=== PATIENT | male | born 1950 | race Caucasian/White ===

== ENCOUNTER 2023-07-27 09:45 | Outpatient (OUT) | payer MEDICARE, SELFPAY ==
--- NOTE | 2023-07-27 09:51 | US_ITS ---
[address] [address] Patient Name: RADHA HOUSE MRN: [id number] date: 1950 Sex: M Assigned Patient Location: US Current Patient Location: Accession/Order Number: [id number] Exam Date: 07/27/2023 09:59 Report Date: 07/27/2023 12:44 At the request of: ANNIA BERRY Procedure: US extremity nonvascular RT EXAMINATION: US venous doppler LE RT, US extremity nonvascular RT HISTORY: CELLULITIS OF RIGHT LOWER EXTREMITY L03.115 ; palpable lump at right ankle COMPARISON: No relevant comparison available. FINDINGS: REGION: Right lower extremity THROMBI: None within deep system. COMPRESSIBILITY: Normal possibility of deep system. FLOW: Normal waveform and antegrade flow between 5 and 20 cm/s. OTHER: Thrombosed great saphenous vein (superficial vein) from mid calf to ankle. US/US extremity nonvascular RT IMPRESSION: 1. No deep vein thrombus within the right lower extremity. 2. Thrombosed distal great saphenous vein; chronic versus acute superficial thrombophlebitis. Findings correspond to patient's palpable lump. Electronically authenticated by: JAYLEN STARK Date: 07/27/2023 12:44
--- NOTE | 2023-07-27 10:24 | US_ITS ---
[address] [address] Patient Name: RADHA HOUSE MRN: [id number] date: 1950 Sex: M Assigned Patient Location: US Current Patient Location: US Accession/Order Number: [id number] Exam Date: 07/27/2023 10:24 Report Date: 07/27/2023 12:44 At the request of: ANNIA BERRY Procedure: US venous doppler LE RT EXAMINATION: US venous doppler LE RT, US extremity nonvascular RT HISTORY: CELLULITIS OF RIGHT LOWER EXTREMITY L03.115 ; palpable lump at right ankle COMPARISON: No relevant comparison available. FINDINGS: REGION: Right lower extremity THROMBI: None within deep system. COMPRESSIBILITY: Normal possibility of deep system. FLOW: Normal waveform and antegrade flow between 5 and 20 cm/s. OTHER: Thrombosed great saphenous vein (superficial vein) from mid calf to ankle. US/US venous doppler LE RT IMPRESSION: 1. No deep vein thrombus within the right lower extremity. 2. Thrombosed distal great saphenous vein; chronic versus acute superficial thrombophlebitis. Findings correspond to patient's palpable lump. Electronically authenticated by: JAYLEN STARK Date: 07/27/2023 12:44
== END 2023-07-27 09:46 | disposition home or self-care (01) ==
LOC: US 09:45
PROVIDERS: PCP Internal Medicine; Visit Provider Internal Medicine
DX: R22.41 Localized swelling, mass and lump, right lower limb (principal)
CPT/HCPCS: 76882; 93971

== ENCOUNTER 2023-08-16 10:43 | Outpatient (OUT) | payer MEDICARE, SELFPAY ==
--- OUTSIDE RECORDS SUMMARY | 2023-08-16 10:51 | XMS_ITS | CCD ---
Author Name Unknown Address [address] [place] [address] Organization [facility] Care Team Providers Care Assembler Motor Vehicle Name Role Phone DR JULIAN HIGGINS Admitting Unavailable RONALDO, DR VIVAS Attending Unavailable STONE, DR MILNER Primary Care Unavailable RONALDO, DR VIVAS Consulting Unavailable ADONIS BERRY Primary Care Physician MD Julian Higgins Attending Provider [phone] DO Adonis Berry Primary Care Provider Adonis Berry Primary Care Unavailable Julian Higgins Attending Unavailable Julian Higgins Admitting Unavailable Adonis Berry Unavailable Julian HIGGINS Attending Unavailable Julian HIGGINS Attending Unavailable Allergies Allergy Classification Reported Allergen(s) Allergy Type Date of Onset Reaction(s) Facility (1 source) Unable to Assess Drug allergy (disorder) [facility] Repository (1 source) No Known Medication Allergies; Translations: [No Known Medication Allergies] Propensity to adverse reactions (disorder) [facility] Repository Medications Current Medications Medication Drug Class(es) Dates Sig (Normalized) Sig (Original) doxycycline hyclate 100 mg oral capsule (6 sources) Tetracycline-clas s Drug Start: 07-11-2023 take 1 capsule by mouth every twelve hours Doxycycline Hyclate 100 MG 1 capsule Orally Twice a day for 7 days Jun, Active Completed/Discontinued Medications Medication Drug Class(es) Dates Sig (Normalized) Sig (Original) azithromycin 250 mg oral tablet (6 sources) Macrolide Antimicrobial Start: 07-06-2022 take 1 tablet by mouth once daily Azithromycin 250 MG azithromycin 250mg, 2 (two) tablet today followed by 1 daily # 6, 07/06/2022, No Refill. Active Oral today followed by 1 daily for 5 Jun, Not-Taking/PRN paxlovid (300/100) 20 x 150 mg & 10 x 100mg tablet therapy pack (4 sources) Start: 07-18-2023 Paxlovid (300/100) 20 x 150 MG & 10 x 100MG as directed Orally bid for 5 days Jun, Not-Taking/PRN Start: 07-18-2023 Paxlovid (300/ 100) 20 x 150 MG & 10 x 100MG as directed Orally bid for 5 days Jun, Active Suprep Bowel Prep Kit 17.5-3.13-1.6 GM/180ML (6 sources) Start: 05-20-2018 Suprep Bowel P rep Kit 17.5-3.13-1.6 GM/180ML 1 bottle AT 4 PM AND ONE BOTTLE AT 11 PM DAY PRIOR TO COLONSOCOPY Orally Once a day for 1 days Apr, Not-Taking/PRN Problems Active Problems Problem Classification Problem Date Documented Da te Episodic/Chronic Diabetes mellitus without complication (6 sources) Impaired fasting glycemia; Translations: [Impaired fasting glucose] Episodic Disorders of lipid metabolism (7 sources) Hyperlipidemia; Translations: [Mixed hyperlipidemia] 06-11-2019 Chronic Essential hypertension (7 sources) Hypertensive disorder; Translations: [Essential hypertension] 06-11-2019 Chronic Hyperplasia of prostate (8 sources) Benign prostatic hypertrophy with outflow obstruction; Translations: [Benign prostatic hyperplasia with lower urinary tract symptoms] Onset: 3 Chronic Other screening for suspected conditions (not mental disorders or infectious disease) (9 sources) Raised prostate specific antigen; Translations: [Elevated prostate specific antigen [PSA]] Onset: 3 Episodic Other skin disorders (1 source) Localized swelling, mass and lump, unspecified Episodic Phlebitis; thrombophlebitis and thromboembolism (1 source) Phlebitis and thrombophlebitis of superficial vessels of right lower extremity Episodic Skin and subcutaneous tissue infections (3 sources) Cellulitis of right lower limb Episodic Past or Other Problems Problem Classification Problem Date Documented Da te Episodic/Chronic Viral infection (3 sources) COVID-19 Results Test Name Value Interpretation Reference Range Facility RAD - MRI Reporton 3 RAD - MRI Report [id number] #1.00CD:127 Normal [facility] Creatinine (Bld) [Mass/Vol]O rdered By: Julian Higgins on 09-11-2022 Creatinine [Mass/Vol] 0.9 mg/dL 0.6-1.3 [facility] Comment on above: ER/ESD physician is notified/shown all ISTAT results.Critical values may be confirmed by laboratory testing ifdeemed necessary by ER attending doctor. ISTAT XRay CREon 09-11-2022 Creatinine [Mass/Vol] 0.9 mg/dL Normal 0.6-1.3 [facility] Comment on above: Result Comment: ER/E SD physician is notified/shown all ISTAT results. Critical values may be confirmed by laboratory testing if deemed necessary by ER attending doctor. Performed By: #### I SCRE #### [address] Point of Care testing , ISTAT GFR ( > 60 Normal [facility] Comment on above: Result Comment: GFR estimated reference range: According to KDOQI guidelines, <60 ml/min/1.73m2 is sufficient to diagnose a patient with chronic kidney disease. PERFORMED BY: [place] [address] PATHOLOGIST [employer] FRANK ELLIS M.D. Performed By: #### I SCRE #### [address] Point of Care testing , ISTAT GFR (Non- Am > 60 Normal [facility] Comment on above: Performed By: #### I SCRE #### [address] Point of Care testing , MR prostate wo/w conon 09-11 MR prostate wo/w con [facility] Main [place] [address] [place] [address] MRI Report Signed Patient: Radha House MR#: [id number] : 1950 Acct:[id number] Age/Sex: 72 / M ADM Date: 09/11/22 Loc: MR Room: Type: [facility] Attending Dr: Julian Higgins MD Copies to: Julian Higgins MD Ordering Provider: Julian Higgins MD Date of Service: 09/11/22 MR/MR prostate wo/w con: R97.20 EXAMINATION: MR prostate wo/w con HISTORY: Elevated PSA. Dysuria for 6 years. COMPARISON: NONE TECHNIQUE: Multiparametric imaging of the prostate gland was performed with IV contrast. FINDINGS: Prostate Dimensions: 7.3 x 6.1 x 6.3 cm Prostate Volume: 146 mL Peripheral Zone: Heterogenous inT2 signal suggestive of prior prostatitis. No suspicious T2 or ADC map abnormality is identified to suggest prostate malignancy. Central/Transitional Zone: BPH changes. Seminal Vesicles: Unremarkable Neurovascular bundles: Unremarkable. Lymphadenopathy: No evidence of lymphadenopathy. Bladder: No focal lesion. Bowel: Diverticulosis Peritoneal Cavity: No free fluid. Bones: No suspicious bony lesion. MR/MR prostate wo/w con IMPRESSION: No MRI evidence of prostate malignancy. BPH. Impression dictated by: Christopher Lucas Jr., D.O.09/11/2022 6:29 PM Dictation Location: [place] [address] Transcribed By: [facility] 09/11/221828 Dictated By: Christopher Lucas Jr, DO 09/11/221823 Signed By: 09/11/221828 [facility] No Panel InformationOrdered By: Julian Higgins on 09-11-2022 POC Estimated GFR > 60 [facility] Comment on above: GFR estimated refere nce range: According to KDOQI guidelines, <60 ml/min/1.73m2 is sufficient to diagnose a patient with chronic kidney disease. POC Estimated GFR Non- Amer > 60 [facility] Ambulatory Visit Summaryon 0 08-18-2022 Ambulatory Visit Summary RADHA HOUSE :1950 Visit Date:08/18/2022 Ambulatory Visit Instructions Your Diagnosis BPH with urinary obstruction Elevated PSA Tests Performed Urnls Dip Stick Auto w/o Microscopy POC 52303 MRI Pelvis (Soft Tissue) w/ + w/o contrast -- Results Pending -- Please visit your patient portal for your results or contact your primary care physician. Your Care Team Attending Physician - RONALDO THRASHER, Julian Hayden Primary Care Physician - ADONIS BERRY DO Procedures Performed Transrectal biopsy of prostate using ultrasound (US) guidance (07/16/2018), Transrectal biopsy of prostate using ultrasound guidance (08/14/2017), Colonoscopy, Tonsillectomy. Discharge Vitals Heart Rate (Peripheral) 75 Respiratory Rate 16 Blood Pressure 135/83 Height 182.8 cm Height 72 in Weight 128.2 kg Weight 282.04 lb BMI 38.37 What to do next You Need to Schedule the Following Appointments Follow Up with RONALDO THRASHER, PATRICIA Greenberg When: Where: [address] [place] [address]- Test Results Urnls Dip Stick Auto w/o Microscopy POC 36563 (08/18/2022) Bilirubin Urine Dipstick - Negative Blood Urine Dipstick - Trace-intact Glucose Urine Dipstick - Negative Ketones Urine Dipstick - Negative Leukocytes Urine Dipstick - Negative Nitrite Urine Dipstick - Negative Protein Urine Dipstick - Negative Specific [place] Urine Dipstick - 1.025 Urine Appearance Urine Dipstick - Clear Urine Color Urine Dipstick - Yellow Urobilinogen Urine Dipstick - Normal 0.2-1 EU/dl pH Urine Dipstick - 6 Allergies No Known Medication Allergies Problems Ongoing - Any problem that you are currently receiving treatment for. BPH with urinary obstruction Elevated PSA Hyperlipidemia Hypertension Education Materials Prostate Cancer Screening The prostate is a walnut-sized gland that is located below the bladder and in front of the rectum in males. The function of the prostate (prostate gland) is to add fluid to semen during ejaculation. Prostate cancer is the second most common type of cancer in men. A screening test for cancer is a test that is done before cancer symptoms start. Screening can help to identify cancer at an early stage, when the cancer can be treated more easily. The recommended prostate cancer screening test is a blood test called the prostate-specific antigen (PSA) test. PSA is a protein that is made in the prostate. As you age, your prostate naturally produces more PSA. Abnormally high PSA levels may be caused by: ? Prostate cancer. ? An enlarged prostate that is not caused by cancer (benign prostatic hyperplasia, BPH). This condition is very common in older men. ? A prostate gland infection (prostatitis). ? Medicines to assist with hair growth, such as finasteride. Depending on the PSA results, you may need more tests, such as: ? A physical exam to check the size of your prostate gland. ? Blood and imaging tests. ? A procedure to remove tissue samples from your prostate gland for testing (biopsy). Who should have screening? Screening recommendations vary based on age. ? If you are younger than age 40, screening is not recommended. ? If you are age 40?54 and you have no risk factors, screening is not recommended. ? If you are younger than age 55, ask your health care provider if you need screening if you have one of these risk factors: ? Being of -Citizen Of [place] descent. ? Having a family history of prostate cancer. ? If you are age 55?69, talk with your health care provider about your need for screening and how often screening should be done. ? If you are older than age 70, screening is not recommended. This is because the risks that screening can cause are greater than the benefits that it may provide (risks outweigh the benefits). If you are at high risk for prostate cancer, your health care provider may recommend that you have screenings more often or start screening at a younger age. You may be at high risk if you: ? Are older than age 55. ? Are -Citizen Of [place]. ? Have a father, brother, or uncle who has been diagnosed with prostate cancer. The risk may be higher if your family member's cancer occurred at an early age. What are the benefits of screening? There is a small chance that screening may lower your risk of dying from prostate cancer. The chance is small because prostate cancer is typically a slow-growing cancer, and most men with prostate cancer from a different cause. What are the risks of screening? The main risk of prostate cancer screening is diagnosing and treating prostate cancer that would never have caused any symptoms or problems (overdiagnosis and overtreatment). PSA screening cannot tell you if your PSA is high due to cancer or a different cause. A prostate biopsy is the only procedure to diagnose prostate cancer. Even the results of a biopsy may not (more content not included)... Normal [facility] Patient Educationon 08-18-19 Patient Education Oncology Prostate Cancer Screening The prostate is a walnut-sized gland that is located below the bladder and in front of the rectum in males. The function of the prostate (prostate gland) is to add fluid to semen during ejaculation. Prostate cancer is the second most common type of cancer in men. A screening test for cancer is a test that is done before cancer symptoms start. Screening can help to identify cancer at an early stage, when the cancer can be treated more easily. The recommended prostate cancer screening test is a blood test called the prostate-specific antigen (PSA) test. PSA is a protein that is made in the prostate. As you age, your prostate naturally produces more PSA. Abnormally high PSA levels may be caused by: ? Prostate cancer. ? An enlarged prostate that is not caused by cancer (benign prostatic hyperplasia, BPH). This condition is very common in older men. ? A prostate gland infection (prostatitis). ? Medicines to assist with hair growth, such as finasteride. Depending on the PSA results, you may need more tests, such as: ? A physical exam to check the size of your prostate gland. ? Blood and imaging tests. ? A procedure to remove tissue samples from your prostate gland for testing (biopsy). Who should have screening? Screening recommendations vary based on age. ? If you are younger than age 40, screening is not recommended. ? If you are age 40?54 and you have no risk factors, screening is not recommended. ? If you are younger than age 55, ask your health care provider if you need screening if you have one of these risk factors: ? Being of -Citizen Of [place] descent. ? Having a family history of prostate cancer. ? If you are age 55?69, talk with your health care provider about your need for screening and how often screening should be done. ? If you are older than age 70, screening is not recommended. This is because the risks that screening can cause are greater than the benefits that it may provide (risks outweigh the benefits). If you are at high risk for prostate cancer, your health care provider may recommend that you have screenings more often or start screening at a younger age. You may be at high risk if you: ? Are older than age 55. ? Are -Citizen Of [place]. ? Have a father, brother, or uncle who has been diagnosed with prostate cancer. The risk may be higher if your family member's cancer occurred at an early age. What are the benefits of screening? There is a small chance that screening may lower your risk of dying from prostate cancer. The chance is small because prostate cancer is typically a slow-growing cancer, and most men with prostate cancer from a different cause. What are the risks of screening? The main risk of prostate cancer screening is diagnosing and treating prostate cancer that would never have caused any symptoms or problems (overdiagnosis and overtreatment). PSA screening cannot tell you if your PSA is high due to cancer or a different cause. A prostate biopsy is the only procedure to diagnose prostate cancer. Even the results of a biopsy may not tell you if your cancer needs to be treated. Slow-growing prostate cancer may not need any treatment other than monitoring, so diagnosing and treating it may cause unnecessary stress or other side effects. A prostate biopsy may also cause: ? Infection or fever. ? A false negative. This is a result that shows that you do not have prostate cancer when you actually do have prostate cancer. Questions to ask your health care provider ? When should I start prostate cancer screening? ? What is my risk for prostate cancer? ? How often do I need screening? ? What type of screening tests do I need? ? How do I get my test results? ? What do my results mean? ? Do I need treatment? Contact a health care provider if: ? You have difficulty urinating. ? You have pain when you urinate or ejaculate. ? You have blood in your urine or semen. ? You have pain in your back or in the area of your prostate. ? You have trouble getting or maintaining an erection (erectile dysfunction, ED). Summary ? Prostate cancer is a common type of cancer in men. The prostate (prostate gland) is located below the bladder and in front of the rectum. This gland adds fluid to semen during ejaculation. ? Prostate cancer screening may identify cancer at an early stage, when the cancer can be treated more easily. ? The prostate-specific antigen (PSA) test is the recommended screening test for prostate cancer. ? Discuss the risks and benefits of prostate cancer screening with your health care provider. If you are age 70 or older, screening is likely to lead to more risks than benefits (risks outweigh the benefits). This information is not intended to replace advice given to you by your health care provider. Make sure you discuss any questions you have with your health care provider. Document Released: 04/26/2018 Document R (more content not included)... [facility] Pre-Certification Formon Pre-Certification Form [id number] #1.00CD:127 [facility] Urology Office/Clinic Noteon 08-18-2022 Urology Office/Clinic Note Chief Complaint elevated PSA HPI Staff Pt is here for 1 year f/u with PSA. Previous dx of elevated PSA and BPH with urinary obstruction. Current PSA done 08/16/22 is 12.58 and previous done 08/10/21 was 7.8. Dysuria: pt states he has some burning off and on but it has been ongoing for about 6 years Incomplete bladder emptying: no Hematuria: no Frequency: every 3-4 hours Urgency: no Nocturia: 1-2x Stream: good stream no straining Leaking: only if he waits too long Post void dripping: no Wearing pads/ Depends: no Urge incontinence: no Stress incontinence: pt states not normally but if he waits too long and his bladder is full it may happen Incontinence without Sensory Awareness: no Abdominal pain: pt has an umbilical hernia so he has some discomfort Flank pain: a little on the left off and on for a long time Sexual complaints: no History of Present Illness Tests reviewed: reviewed UA and PSA. I have reviewed the previous health record information and history for this patient from Dr. Higgins. I have reviewed and verified the staff HPI to be accurate for this encounter. There have been no associated fever, chills, flank pain, or blood in the urine. Denies any urinary infections since last encounter. Review of Systems PHQ Score Initial Depression Screen Score: 0 ROS - Provider Constitutional: denies weight loss, denies hot flashes. Eyes: denies eye problems. Gastrointestinal: denies nausea, denies vomiting. Cardiovascular: denies chest pain or angina. Integumentary: no dryness Musculoskeletal: denies musculoskeletal symptoms. ENMT: denies otolaryngeal symptoms. Respiratory: no shortness of breath. Heme/Lymph: denies easy bleeding tendency, denies easy bruising tendency. Psychiatric: no confusion, no anxiety. Genitourinary: denies dysuria, denies hematuria, denies discharge, denies urinary frequency, denies urinary hesitancy, denies nocturia, denies incontinence, denies genital sores, denies decreased libido, and denies erectile dysfunction. Physical Exam Vitals & Measurements HR: 75(Peripheral) RR: 16 BP: 135/83 HT: 72 in HT: 182.8 cm WT: 128.2 kg WT: 282.04 lb BMI: 38.37 General Appearance: alert, no distress, well nourished, well developed male. Genitourinary: normal scrotum, normal testes, normal urethra, normal epididymis, normal vas deferens/spermatic cord. Flank Pain: none. Bladder: nonpalpable. Prostate: normal prostate, estimated weight 35 gms, no hard nodule observed. Assessment/Plan 1. BPH with urinary obstruction (N40.1: Benign prostatic hyperplasia with lower urinary tract symptoms) Patient is not on any prostate medications at this time. UA today neg for infection. Leakage with urge and some burning if he holds his urine too long. Reports burning has been happening for 6 years. Voiding every 3-4 hours. Denies any trouble with urination or hematuria. Strong stream and he feels empty when he is done. 2. Elevated PSA (R97.20: Elevated prostate specific antigen [PSA]) Two neg. bx in 07/2017 & 06/2018. Negative prostate MRI in 06/2019. Pt. has been as high as 15 in the past. I presume that pt. has low grade chronic prostatitis that is affecting PSA. We will order MRI of prostate to be done at [facility]. If neg for abnormalities, no biopsy will be indicated and will continue to follow PSA closely. Follow up in 1 year with PSA pending MRI. All questions/concerns were discussed. Pt. to call the office if heencounters any issues prior. Pt. acknowledges understanding. PSA: 04/2020 - 7 08/10/21 - 7.8 08/16/22 - 12.58 LOUIS today - 35gms, nontender, no hard nodules. Follow-up With When Contact Information RONALDO THRASHER, Julian Hayden, [address] [place] [address]- Additional Instructions: Schedule MRI; 1 year w/ PSA Patient Education Prostate Cancer Screening INicole, personally scribed for Dr. Higgins on 08/18/2022 10:47:05. . Documentation recorded by the scribe, Nicole Santiago, accurately reflects the services(s) I performed and decisions made by me. Authenticated by Dr. Higgins on 08/18/2022 10:48:32. Problem List/Past Medical History Ongoing BPH with urinary obstruction Elevated PSA Hyperlipidemia Hypertension Historical No qualifying data Procedure/Surgical History Transrectal biopsy of prostate using ultrasound (US) guidance (07/16/2018), Transrectal biopsy of prostate using ultrasound guidance (08/14/2017), Colonoscopy, Tonsillectomy. Medications No active medications Allergies No Known Medication Allergies Social History Tobacco - Denies Tobacco Use, 08/04/2019 Never (less than 100 in lifetime) Tobacco Use:., 06/13/2019 Family History Cancer of liver: Mother. Diabetes mellitus type 2: Mother. Hypertension: Mother. Immunizations Vaccine Date Status Comments SARS-CoV-2 (COVID-19) mRNA BNT-162b2 vax 2020 Recorded Pt has had 3 shots to date b (more content not included)... Normal [facility] Comment on above: Result Comment: Elec tronically Signed By: Julian HIGGINS MD\.br\Date and Time Signed: 08/18/22 10:48 EST\.br\Electronically Co-Signed By: Nicole Santiago\.br\Date and Time Co-Signed: 08/18/22 10:47 EST [facility] 08-17-2022 Lab Reports [id number] #1.00CD:127 Normal [facility] Vital Signs Date Time Vital Sign Value Performing Clinician Facility 07-27-2023 10:45-0500 Body height 177.8 cm [employer] Other [facility] Other 07-27-2023 10:45-0500 Body mass index (BMI) [Ratio] 36.33 kg/m2 [employer] Other [facility] Other 07-27-2023 10:45-0500 Body weight 114.85 kg [employer] Other [facility] Other 07-27-2023 10:45-0500 Diastolic blood pressure 95 mm[Hg] [employer] Other [facility] Other 07-27-2023 10:45-0500 Respiratory rate 16 /min Adonis Ball Other [facility] Other 07-27-2023 10:45-0500 Systolic blood pressure 153 mm[Hg] Adonis Ball Other [facility] Other 07-18-2023 10:15-0500 Body height 177.8 cm Adonis Ball Other [facility] Other 07-18-2023 10:15-0500 Body mass index (BMI) [Ratio] 36.3 kg/m2 Adonis Ball Other [facility] Other 07-18-2023 10:15-0500 Body weight 114.76 kg Adonis Ball Other [facility] Other 07-18-2023 10:15-0500 Diastolic blood pressure 99 mm[Hg] Adonis Ball Other [facility] Other 07-18-2023 10:15-0500 Respiratory rate 12 /min Adonis Ball Other [facility] Other 07-18-2023 10:15-0500 Systolic blood pressure 157 mm[Hg] Adonis Ball Other [facility] Other 07-11-2023 13:45-0500 Body height 177.8 cm Adonis Ball Other [facility] Other 07-11-2023 13:45-0500 Body mass index (BMI) [Ratio] 36.1 kg/m2 Adonis Ball Other [facility] Other 07-11-2023 13:45-0500 Body weight 114.13 kg Adonis Ball Other [facility] Other 07-11-2023 13:45-0500 Diastolic blood pressure 94 mm[Hg] Adonis Berry Other [facility] Other 07-11-2023 13:45-0500 Respiratory rate 12 /min Adonis Berry Other [facility] Other 07-11-2023 13:45-0500 Systolic blood pressure 142 mm[Hg] Adonis Berry Other [facility] Other 08-18-2022 09:43-0500 Blood Pressure Location Julian HIGGINS [facility] 08-18-2022 09:43-0500 Diastolic blood pressure 83 mm[Hg] Julian HIGGINS [facility] 08-18-2022 09:43-0500 Heart rate 75 /min Julian HIGGINS [facility] 08-18-2022 09:43-0500 Respiratory rate 16 /min Julian HIGGINS [facility] 08-18-2022 09:43-0500 Systolic blood pressure 135 mm[Hg] Julianvignesh HIGGINS [facility] Encounters Encounter Date Encounter Type Care Provider Facility Start: 11-12-2023 ambulatory Julian HIGGINS Facili ty:[facility] Start: 07-31-2023 End: 07-31-2023 ambulatory Adonis Berry Other [facility] Other Start: 07-31-2023 Telephone encounter [facility] Start: 07-27-2023 End: 07-27-2023 ambulatory Adonis Berry Other [facility] Other Start: 07-27-2023 Office outpatient vi sit 15 minutes Adonis Ball [facility] Start: 07-18-2023 End: 07-18-2023 ambulatory Adonis Ball Other [facility] Other Start: 07-18-2023 Office outpatient vi sit 15 minutes Adonis Ball [facility] Start: 07-18-2023 Telephone encounter Adonis Brery [facility] Start: 07-13-2023 End: 07-13-2023 ambulatory Adonis Ball Other [facility] Other Start: 07-13-2023 Telephone encounter Adonis Berry [facility] Start: 07-11-2023 End: 07-11-2023 ambulatory Adonis Stone Other [facility] Other Start: 07-11-2023 Office outpatient vi sit [address] [facility] Start: 09-11-2022 End: 09-11-2022 ambulatory Adonis Berry Facility:[facility] Start: 09-11-2022 End: 09-11-2022 ambulatory DO Adonis Ball Work Phone: [facility] Work Phone: Start: 09-11-2022 End: 09-11-2022 Patient encounter procedure DO Adonis Ball Work Phone: [facility] [place] Work Phone: Start: 08-18-2022 End: 08-19-2022 ambulatory Julian HIGGINS Facility:[facility] Start: 08-18-2022 End: 08-18-2022 Patient encounter procedure Julian HIGGINS [facility] Start: 08-16-2022 End: 08-17-[address] JULIAN HIGGINS Facility:[facility] Procedures Date Procedure Procedure Detail Performing Clinician Start: 09-11-2022 MR prostate wo/w con DO Adonis Ball Work Phone: Start: 08-16-[address] ANTONIETA HIGGINS Comment on above: Performed By: #### P SAD #### [facility] [address] [place] [address] Dr. Antione Alves Start: 07-16-2018 Transrectal biopsy o f prostate using ultrasound guidance Julian HIGGINS Start: 08-14-2017 Transrectal biopsy o f prostate using ultrasound guidance Julian HIGGINS Colonoscopy Julian HIGGINS Tonsillectomy Julian HIGGINS Immunizations Immunization Date Immunization Notes Care Provider Fa cility 07-30-2020 SARS-CoV-2 (COVID-19 ) mRNA BNT-162b2 vax Julian HIGGINS [facility] Comment on above: Result Comment: Pt h as had 3 shots to date but does not know the dates 04-04-2017 diphtheria, tetanus toxoids and acellular pertussis vaccine, unspecified formulation Adonis Berry Other [employer] Other Payers Date Payer Category Payer Self-pay 1958 Medicare [id number] 1950 Unknown [id number] 1950 Unknown [id number] 1950 Unknown [id number] Unknown [id number] Social History Date Type Detail Facility Start: 06-13-2019 Tobacco smoking status Never s moked tobacco (finding) [facility] Sex Assigned At Male [facility] Start: 1950 Sex Assigned At Male [facility] Functional Status Date Assessment Result Facility 08-18-2022 Functional Status N/A [facility] Clinical Notes 08-18-2022 to 07-27-2023 Note Date & Type Note Facility 07-27-2023 Evaluation note Encounter Date Diagnosis Assessment Notes Jun, Cellulitis of right lower extremity (ICD-10 - L03.115) Resolved w/ antibiotics. No further antibiotics needed. Elevate and warm compresses Jun, Thrombophlebitis of superficial veins of right lower extremity (ICD-10 - I80.01) Elevate, warm compresses, ASA and Voltaren Gel. Will update next week. No risk for DVT or PE Jun, COVID-19 (ICD-10 - U07.1) Completed Paxlovid. Symptoms lingering but improved. Complete 10 day isolation [facility] Other 12-20-2023 Evaluation note* Encounter Date Diagnosis Assessment Notes Treatment Notes Treatment Clinical Notes Jun, Cellulitis of right lower extremity (ICD-10 - L03.115) Elevate and warm compresses. There is now bruising distal to his tibia that correlates w/ some previous trauma Likely acute injury w/ superimposed cellulitis Jun, Subcutaneous mass (ICD-10 - R22.9) Monitor for now. US to determine if vascular or tendon in etiology. Jun, COVID-19 (ICD-10 - U07.1) Self isolate at home. - Cannot work - avoid contact with others - avoid pets - wipe counters, door knobs if touched - if can't avoid leaving home, must wear mask to protect others - need to stay isolated for 10 days from onset of symptoms - to discontinue isolation must be 5 days AND must be without fever for 24 hours AND symptoms must be improving. Always wear a mask in public places for complete 10 days Initiate Paxlovid [facility] Other 12-20-2023 Evaluation note* Encounter Date Diagnosis Assessment Notes Treatment Notes Treatment Clinical Notes Jun, COVID-19 (ICD-10 - U07.1) [facility] Other 12-13-2023 Evaluation note* Encounter Date Diagnosis Assessment Notes Treatment Notes Treatment Clinical Notes Jun, Cellulitis of right lower extremity (ICD-10 - L03.115) Elevate and warm compresses. Begin antibiotics. _update in 2 days and recheck in week. [facility] Other 01-20-2023 Hospital Discharge instructions Patient Education 08/18/2022 10:27:46 Prostate Cancer Screening Prostate Cancer Screening The prostate is a walnut-sized gland that is located below the bladder and in front of the rectum in males. The function of the prostate (prostate gland) is to add fluid to semen during ejaculation. Prostate cancer is the second most common type of cancer in men. A screening test for cancer is a test that is done before cancer symptoms start. Screening can helpto identify cancer at an early stage, when the cancer can be treated more easily. The recommended prostate cancer screening test is a blood test called the prostate-specific antigen (PSA) test. PSA is a protein that is made in the prostate. As you age, your prostate naturally produces more PSA. Abnormally high PSA levels may be caused by: Prostate cancer. An enlarged prostate that is not caused by cancer (benign prostatic hyperplasia, BPH). This condition is very common in older men. A prostate gland infection (prostatitis). Medicines to assist with hair growth, such as finasteride. Depending on the PSA results, you may need more tests, such as: A physical exam to check the size of your prostate gland. Blood and imaging tests. A procedure to remove tissue samples from your prostate gland for testing (biopsy). Who should have screening? Screening recommendations vary based on age. If you are younger than age 40, screening is not recommended. If you are age 40 54 and you have no risk factors, screening is not recommended. If you are younger than age 55, ask your health care provider if you need screening if you have oneof these risk factors: ?Being of -Citizen Of [place] descent. ?Having a family history of prostate cancer. If you are age 55 69, talk with your health care provider about your need for screening and how often screening should be done. If you are older than age 70, screening is not recommended. This is because the risks that screening can cause are greater than the benefits that it may provide (risks outweigh the benefits). If you are at high risk for prostate cancer, your health care provider may recommend that you have screenings more often or start screening at a younger age. You may be at high risk if you: Are older than age 55. Are -Citizen Of [place]. Have a father, brother, or uncle who has been diagnosed with prostate cancer. The risk may be higher if your family member's cancer occurred at an early age. What are the benefits of screening? There is a small chance that screening may lower your risk of dying from prostate cancer. The chance is small because prostate cancer is typically a slow-growing cancer, and most men with prostate cancer from a different cause. What are the risks of screening? The main risk of prostate cancer screening is diagnosing and treating prostate cancer that would never have caused any symptoms or problems (overdiagnosis and overtreatment). PSA screening cannot tell you if your PSA is high due to cancer or a different cause. A prostate biopsy is the only procedure to diagnose prostate cancer. Even the results of a biopsy may not tell you if your cancer needs megan treated. Slow-growing prostate cancer may not need any treatment other than monitoring, so diagnosing and treating it may cause unnecessary stress or other side effects. A prostate biopsy may also cause: Infection or fever. A false negative. This is a result that shows that you do not have prostate cancer when you actually do have prostate cancer. Questions to ask your health care provider When should I start prostate cancer screening? What is my risk for prostate cancer? How often do I need screening? What type of screening tests do I need? How do I get my test results? What do my results mean? Do I need treatment? Contact a health care provider if: You have difficulty urinating. You have pain when you urinate or ejaculate. You have blood in your urine or semen. You have pain in your back or in the area of your prostate. You have trouble getting or maintaining an erection (erectile dysfunction, ED). Summary Prostate cancer is a common type of cancer in men. The prostate (prostate gland) is located below the bladder and in front of the rectum. This gland adds fluid to semen during ejaculation. Prostate cancer screening may identify cancer at an early stage, when the cancer can be treated more easily. The prostate-specific antigen (PSA) test is the recommended screening test for prostate cancer. Discuss the risks and benefits of prostate cancer screening with your health care provider. If you are age 70 or older, screening is likely to lead to more risks than benefits (risks outweigh the benefits). This information is not intended to replace advice given to you by your health care provider. Make sure you discuss any questions you have with your health care provider. Document Released: 04/26/2018 Document Revised: 06/28/2018 Document Reviewed: 04/26/2018 [employer] Patient Education 2020 Private Outlet. Follow Up Care 08/15/2021 12:39:57 With:RONALDO THRASHER, Julian Hayden, URL Address: [address] [place] [address] [place] [address]- When: Unknown [facility] evaluation + Plan note Future Appointments Appointment Date:08/17/2023 09:30:00 AM Scheduled Provider:Julian HIGGINS MD Location:[facility] Appointment Type:URO Office Visit Diagnostic Tests Pending * PSA Total 06/29/23 [facility] evaldynypl noteNo assessment information available [facility] Work Phone: [facility]No [facility] [employer] Other History general Narrative - Reported* Type Description Date Medical History Hyperlipidemia, mixed Medical History Benign localized pro static hyperplasia without lower urinary tract symptoms (LUTS) Medical History Elevated PSA Medical History IFG (impaired fasting glucose) Medical History Essential hypertension Surgical History COLONOSCOPY 05/2018 Hospitalization History see surgical history [facility] [employer] Other Hospital course Narrative No data available for this section [facility] Sidestage progress note No data available for this section [facility] Summary Purpose Family History No Family History Records FoundNo Family History Records FoundNo Family History Records Found Advance Directives No Advanced Directives Records Found Advance Directive Response Recorded Date/ Time Advance Directives No August 30, 2022 1:25pm Chief Complaint and Reason for Visit Chief Complaint r97.20 Additional Source Comments (unrecognized sect ion and content) No Status Records FoundNo Status Records FoundNo Status Records Found INFORMATION SOURCE (unrecogn ized section and content) DATE CREATED AUTHOR 08/17/2022 [facility] DATE CREATED AUTHOR AUTHOR'S ORGANIZ ATION 09/20/2022 [facility] DATE CREATED AUTHOR AUTHOR'S ORGANIZ ATION 08/03/2023 Clarence Villegas [facility] Patient Care team informatio n (unrecognized section and content) Team Status: Inactive Member Role Status Dates Julian Higgins MD Attending Provider Active Adonis Berry DO Primary Care Provider Active Team Status: Active Member Role Status Dates Adonis Berry , Primary Care Provider Active Goals (unrecognized section and content) Goals may be documented in a n alternate section REASON FOR VISIT (unrecogniz ed section and content) right ankle redness, swollen update1 week follow upCOVID Positiveblood clotLab results FOR RECORDS PERTAINING TO PATIENTS WHO ARE OR HAVE BEEN ENROLLED IN A CHEMICAL DEPENDENCY/SUBSTANCEABUSE PROGRAM, SOME INFORMATION MAY BE OMITTED. This clinical summary was aggregated from multiple sources. Caution should be exercised in using it in the provision of clinical care. This summary normalizes information from multiple sources, and as a consequence, information in this document may materially change the coding, format and clinical context of patient data. In addition, data may be omitted in some cases. CLINICAL DECISIONS SHOULD BE BASED ON THE PRIMARY CLINICAL RECORDS. [employer] [facility]. provides no warranty or guarantee of the accuracy or completeness of information in this document.
[2023-08-17 08:11] LABS: PSA, Free 2.48 ng/mL
== END 2023-08-16 10:44 | disposition home or self-care (01) ==
LOC: LAB 10:46
PROVIDERS: PCP Internal Medicine; Visit Provider Urology
DX: R97.20 Elevated prostate specific antigen [PSA] (principal)
CPT/HCPCS: 36415; 84153; 84154

== ENCOUNTER 2023-11-12 10:42 | Outpatient (OUT) | payer MEDICARE, SELFPAY ==
[2023-11-12 11:00] LABS: Basophils Absolute Auto 0.1 10^3/uL (0.0-0.1); Basophils Percent Auto 1.1 % (0.2-2.0); Eosinophils Absolute Auto 0.4 10^3/uL (0.0-0.7); Eosinophils Percent Auto 4.6 % (0.9-7.0); Hematocrit 45.2 % (42.0-54.0); Hemoglobin 14.8 g/dL (14.0-18.0); Immature Granulocytes Abs Auto 0.01 10^3/uL (0.00-0.03); Immature Granulocytes Pct Auto 0.1 % (0.0-0.5); Lymphocytes Absolute Auto 1.4 10^3/uL (1.2-3.8); Lymphocytes Percent Auto 18.7 % (20.5-60.0); Mean Corpuscular HGB Conc 32.7 g/dL (29.9-35.2); Mean Corpuscular Hemoglobin 31.9 pg (25.9-34.0); Mean Corpuscular Volume 97.4 fL (80.0-94.0); Mean Platelet Volume 9.5 fL (9.5-13.5); Monocytes Absolute Auto 0.6 10^3/uL (0.3-0.8); Monocytes Percent Auto 8.3 % (1.7-12.0); Neutrophils Absolute Auto 5.1 10^3/uL (1.4-6.5); Neutrophils Percent Auto 67.2 % (43.0-75.0); Platelet Count 193 10^3/uL (150-450); Red Blood Count 4.64 10^6/uL (4.70-6.10); Red Cell Distribution Width 12.8 % (11.0-15.0); White Blood Count 7.6 10^3/uL (4.0-11.0)
--- OUTSIDE RECORDS SUMMARY | 2023-11-12 11:07 | XMS_ITS | CCD ---
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 Name Role Phone DR JULIAN HIGGINS Admitting Unavailable RONALDO, DR VIVAS Attending Unavailable KRISTI, DR MILNER Primary Care Unavailable RONALDO, DR VIVAS Consulting Unavailable ADONIS BERRY Primary Care Physician [phone] MD Julian Higgins Attending Provider DO Adonis Berry Primary Care Provider [phone] Adonis Berry Primary Care Unavailable Julian Higgins Attending Unavailable Julian Higgins Admitting Unavailable Adonis Berry Unavailable Julian HIGGINS Attending Unavailable Allergies Allergy Classification Reported Allergen(s) Allergy Type Date of Onset Reaction(s) Facility (1 source) Unable to Assess Drug allergy (disorder) 3 [facility] Repository (1 source) No Known Medication Allergies; Translations: [No Known Medication Allergies] Propensity to adverse reactions (disorder) [facility] Repository Medications Current Medications Medication Drug Class(es) [...] Test Name Value Interpretation Reference Range Facility [facility] 08-17-2023 Lab Reports [id number]# 1.00TIFF Normal [facility] Creatinine (Bld) [Mass/Vol]O rdered By: Julian Higgins on 09-11-2022 Creatinine [Mass/Vol] 0.9 mg/dL 0.6-1.3 [facility] Comment on above: ER/ESD physician is notified/shown all ISTAT results.Critical values may be confirmed by laboratory testing ifdeemed necessary by ER attending doctor. ISTAT XRay CREon 09-11-2022 Creatinine [Mass/Vol] 0.9 mg/dL Normal 0.6-1.3 [facility] Comment on above: Result Comment: ER/E SD physician is notified/shown all ISTAT results. Critical values may be confirmed by laboratory testing if deemed necessary by ER attending doctor. Performed By: #### I SCRE #### [address] Point of Care testing , ISTAT GFR ( > 60 Normal [facility] Comment on above: Result Comment: GFR estimated reference range: According to KDOQI guidelines, <60 ml/min/1.73m2 is sufficient to diagnose a patient with chronic kidney disease. PERFORMED BY: [place] [address] PATHOLOGIST FLAP MAKER FRANK ELLIS M.D. Performed By: #### I SCRE #### [address] Point of Care testing , ISTAT GFR (Non- Am > 60 Normal [facility] Comment on above: Performed By: #### I SCRE #### [address] Point of Care testing , MR prostate wo/w conon 09-11 MR prostate wo/w con [facility] Main [facility] [address] [place] [address] MRI Report Signed Patient: Saji House MR#: [id number] : 1950 Acct:[id number] Age/Sex: 72 / M ADM Date: 09/11/22 Loc: MR Room: Type: [facility] Attending Dr: Julian Higgins MD Copies to: [...] Lucas Jr., D.O.09/11/2022 6:29 PM Dictation Location: [place] [address] Transcribed By: [facility] 09/11/221828 Dictated By: Christopher Lucas Jr, DO 09/11/221823 Signed By: 09/11/221828 Normal [facility] No Panel InformationOrdered By: Julian Higgins on 09-11-2022 POC Estimated GFR > 60 [facility] Comment on above: GFR estimated refere nce range: According to KDOQI guidelines, <60 ml/min/1.73m2 is sufficient to diagnose a patient with chronic kidney disease. POC Estimated GFR Non- Amer > 60 [facility] Vital Signs Date Time Vital Sign Value Performing Clinician Facility 07-27-2023 10:45-0500 Body height 177.8 cm [facility] Other [facility] Other 07-27-2023 10:45-0500 Body mass index (BMI) [Ratio] 36.33 kg/m2 [facility] Other [facility] Other 07-27-2023 10:45-0500 Body weight 114.85 kg [facility] Other [facility] Other 07-27-2023 10:45-0500 Diastolic blood pressure 95 mm[Hg] [facility] Other [facility] Other 07-27-2023 10:45-0500 Respiratory rate 16 /min Adonis Ball Other [facility] Other 07-27-2023 10:45-0500 Systolic blood pressure 153 mm[Hg] Adonis Ball Other [facility] Other 07-18-2023 10:15-0500 Body height 177.8 cm Adonis Ball Other [facility] Other 07-18-2023 10:15-0500 Body mass index (BMI) [Ratio] 36.3 kg/m2 Adonis Ball Other [facility] Other 07-18-2023 10:15-0500 Body weight 114.76 kg Adonis Ball Other [facility] Other 07-18-2023 10:15-0500 Diastolic blood pressure 99 mm[Hg] Adonis Ball Other [facility] Other 07-18-2023 10:15-0500 Respiratory rate 12 /min Adonis Ball Other [facility] Other 07-18-2023 10:15-0500 Systolic blood pressure 157 mm[Hg] Adonis Ball Other [facility] Other 07-11-2023 13:45-0500 Body height 177.8 cm Adonis Ball Other [facility] Other 07-11-2023 13:45-0500 Body mass index (BMI) [Ratio] 36.1 kg/m2 Adonis Ball Other [facility] Other 07-11-2023 13:45-0500 Body weight 114.13 kg Adonis Ball Other [facility] Other 07-11-2023 13:45-0500 Diastolic blood pressure 94 mm[Hg] Adonis Berry Other [facility] Other 07-11-2023 13:45-0500 Respiratory rate 12 /min Adonis Kristi Other [facility] Other 07-11-2023 13:45-0500 Systolic blood pressure 142 mm[Hg] Adonis Berry Other [facility] Other 08-18-2022 09:43-0500 Blood Pressure Location Julian RONALDO [facility] 08-18-2022 09:43-0500 Diastolic blood pressure 83 mm[Hg] Julian HIGGINS [facility] 08-18-2022 09:43-0500 Heart rate 75 /min Julianvignesh HIGGINS [facility] 08-18-2022 09:43-0500 Respiratory rate 16 /min Julianvignesh HIGGINS [facility] 08-18-2022 09:43-0500 Systolic blood pressure 135 mm[Hg] Julian HIGGINS [facility] Encounters Encounter Date Encounter Type Care Provider Facility Start: 11-12-2023 ambulatory Julian HIGGINS Facili ty:[facility] Start: 07-31-2023 End: 07-31-2023 ambulatory Adonis Berry Other [facility] Other Start: 07-31-2023 Telephone encounter Adonis Berry [facility] Start: 07-27-2023 End: 07-27-2023 ambulatory Adonis Berry Other [facility] Other Start: 07-27-2023 Office outpatient vi sit 15 minutes Adonis Ball [facility] Start: 07-18-2023 End: 07-18-2023 ambulatory Adonis Ball Other [facility] Other Start: 07-18-2023 Office outpatient vi sit 15 minutes Adonis Ball [facility] Start: 07-18-2023 Telephone encounter Adonis Ball [facility] Start: 07-13-2023 End: 07-13-2023 ambulatory Adonis Ball Other [facility] Other Start: 07-13-2023 Telephone encounter Adonis Ball [facility] Start: 07-11-2023 End: 07-11-2023 ambulatory Adonis Ball Other [facility] Other Start: 07-11-2023 Office outpatient vi sit 15 minutes Adonis Ball [facility] Start: 09-11-2022 End: 09-11-2022 ambulatory Adonis Berry Facility:[facility] Start: 09-11-2022 End: 09-11-2022 ambulatory DO Adonis Berry Work Phone: [facility] Work Phone: Start: 09-11-2022 End: 09-11-2022 Patient encounter procedure DO Adonis Berry Work Phone: [facility] Work Phone: Start: 08-18-2022 End: 08-18-2022 Patient encounter procedure Julian HIGGINS [facility] Start: 08-16-2022 End: 08-17-[address] JULIAN HIGGINS Facility:[facility] Procedures Date Procedure Procedure Detail Performing Clinician Start: 09-11-2022 MR prostate wo/w con DO Adonis Ball Work Phone: Start: 08-16-[address] ANTONIETA HIGGINS Comment on above: Performed By: #### P SAD #### [facility] [address] [place] [address] Dr. Antione Alves Start: 07-16-2018 Transrectal biopsy o f prostate using ultrasound guidance Julian HIGGINS Start: 08-14-2017 Transrectal biopsy o f prostate using ultrasound guidance Julian HIGGINS Colonoscopy Julian HIGGINS Tonsillectomy Julian HIGGINS Immunizations Immunization Date Immunization Notes Care Provider Fa cility 07-30-2020 SARS-CoV-2 (COVID-19 ) mRNA BNT-162b2 vax Julian HIGGINS [facility] Comment on above: Result Comment: Pt h as had 3 shots to date but does not know the dates 04-04-2017 diphtheria, tetanus toxoids and acellular pertussis vaccine, unspecified formulation Adonis Berry Other [facility] Other Payers Date Payer Category Payer Self-pay 1958 Medicare [id number] 1950 Unknown [id number] 1950 Unknown [id number] Unknown [id number] Social History Date Type Detail Facility Start: 06-13-2019 Tobacco smoking status Never s moked tobacco (finding) [facility] Sex Assigned At Male [facility] Start: 1950 Sex Assigned At Male [facility] Functional Status Date Assessment Result Facility 08-18-2022 Functional Status N/A [facility] Clinical Notes 08-18-2022 to 07-27-2023 Note Date [...] lingering but improved. Complete 10 day isolation [facility] Other 12-20-2023 Evaluation note* Encounter Date Diagnosis [...] places for complete 10 days Initiate Paxlovid [facility] Other 12-20-2023 Evaluation note* Encounter Date Diagnosis Assessment Notes Treatment Notes Treatment Clinical Notes Jun, COVID-19 (ICD-10 - U07.1) [facility] Other 12-13-2023 Evaluation note* Encounter Date Diagnosis Assessment Notes Treatment Notes Treatment Clinical Notes Jun, Cellulitis of right lower extremity (ICD-10 - L03.115) Elevate and warm compresses. Begin antibiotics. _update in 2 days and recheck in week. [facility] Other 01-20-2023 Hospital Discharge instructions Patient Education [...] have oneof these risk factors: ?Being of -[place] descent. ?Having a family history of prostate [...] you: Are older than age 55. Are -[place]ian. Have a father, brother, or uncle who [...] 04/26/2018 Document Revised: 06/28/2018 Document Reviewed: 04/26/2018 Immunetics Patient Education 2020 [employer]. Follow Up Care 08/15/2021 12:39:57 With:RONALDO THRASHER, Julian Hayden, URL Address: [address] [place] [address]- When: Unknown [facility] evaluation + Plan note Future Appointments Appointment Date:08/17/2023 09:30:00 AM Scheduled Provider:Julian HIGGINS MD Location:[facility] Appointment Type:URO Office Visit Diagnostic Tests Pending * PSA Total 06/29/23 [facility] evaluation noteNo assessment information available [facility] Work Phone: Evaluation noteNo InformationNortNew [facility] Other History general Narrative - Reported* Type Description Date Medical History Hyperlipidemia, mixed Medical History Benign localized pro static hyperplasia without lower urinary tract symptoms (LUTS) Medical History Elevated PSA Medical History IFG (impaired fasting glucose) Medical History Essential hypertension Surgical History COLONOSCOPY 05/2018 Hospitalization History see surgical history [place] [facility] [employer] Other Hospital course Narrative No data available for this section [facility] progress note No data available for this section [facility] Summary Purpose Family History No Family History [...] and content) DATE CREATED AUTHOR 08/17/[address] [facility] DATE CREATED AUTHOR AUTHOR'S ORGANIZ ATION 09/20/2022 [facility] DATE CREATED AUTHOR AUTHOR'S ORGANIZ ATION 11/08/2023 [facility] Patient Care team informatio n (unrecognized section and content) Team Status: Inactive Member Role Status Dates Julian Higgins MD Attending Provider Active Adonis Berry DO Primary Care Provider Active Team Status: Active Member Role Status Dates Adonis Berry DO Primary Care Provider Active Goals (unrecognized section [...] BE BASED ON THE PRIMARY CLINICAL RECORDS. Pets are family too [facility]. provides no warranty or guarantee of the accuracy or completeness of information in this document.
[2023-11-12 11:51] LABS: Alanine Aminotransferase 25 U/L (16-63); Albumin Globulin Ratio 1.2; Albumin Level 3.7 g/dL (3.4-5.0); Alkaline Phosphatase 78 U/L (46-116); Aspartate Amino Transferase 15 U/L (15-37); BUN Creatinine Ratio 17.8; Bilirubin Total 0.6 mg/dL (0.2-1.0); Calcium 9.3 mg/dL (8.5-10.1); Chloride 106 mmol/L (98-107); Chol HDL Ratio 3.9; Cholesterol 169 mg/dL (<=200); Estimated GFR (African America >60 (>=60); Estimated GFR (Non-African Ame >60 (>=60); Globulin 3.1 g/dL; Glucose 113 mg/dL (74-106); HDL Cholesterol 43 mg/dL (40-60); LDL Cholesterol Calculated 109.2 mg/dL; Sodium 142 mmol/L (136-145); Total Protein 6.8 g/dL (6.4-8.2); Triglycerides 84 mg/dL (<=150); VLDL CHOLESTEROL 16.8 mg/dL
[2023-11-12 12:44] LABS: Prostate Specific Antigen Scrn 8.22 ng/mL (<=4.00)
== END 2023-11-12 10:43 | disposition home or self-care (01) ==
LOC: LAB 10:44
PROVIDERS: PCP Internal Medicine; Visit Provider Internal Medicine
DX: E78.00 Pure hypercholesterolemia, unspecified (principal); I10 Essential (primary) hypertension; R73.01 Impaired fasting glucose; R53.83 Other fatigue; Z12.5 Encounter for screening for malignant neoplasm of prostate
CPT/HCPCS: 36415; 80053; 80061; 85025; G0103

== ENCOUNTER 2024-03-14 09:28 | Outpatient (OUT) | payer MEDICARE, SELFPAY ==
--- NOTE | 2024-03-14 09:44 | XR_ITS ---
The [address] [address] Patient Name: RADHA HOUSE MRN: [id number] date: 1950 Sex: M Assigned Patient Location: RAD Current Patient Location: [facility] Accession/Order Number: [id number] Exam Date: 03/14/2024 09:59 Report Date: 03/14/2024 11:58 At the request of: ANNIA BERRY Procedure: XR chest 2V PROCEDURE: XR chest 2V DATE: 03/14/2024 8:59 AM CDT COMPARISONS: None. CLINICAL INDICATION: 73 years Male Cough FINDINGS: The cardiomediastinal silhouette and pulmonary vasculature are within normal limits. The lungs are clear. There is no evidence of pleural effusion or pneumothorax. There is some anterior osteophytic spurring of the thoracic spine possibly related to DISH or possibly related to some degenerative spondylosis. XR/XR chest 2V IMPRESSION: Chest radiograph is essentially within normal limits. Electronically authenticated by: AMBROCIO WIGGINS Date: 03/14/2024 11:58
--- OUTSIDE RECORDS SUMMARY | 2024-03-14 09:51 | XMS_ITS | CCD ---
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 Name Role Phone DR JULIAN HIGGINS Admitting Unavailable RONALDO, DR VIVAS Attending Unavailable STONE, DR MILNER Primary Care Unavailable RONALDO, DR VIVAS Consulting Unavailable ADONIS BERRY Primary Care Physician [phone] MD Julian Higgins Attending Provider [phone] DO Adonis Berry Primary Care Provider [phone] Adonis Berry Primary Care Unavailable Julian Higgins Attending Unavailable Julian Higgins Admitting Unavailable Adonis Berry Unavailable Julian HIGGINS Attending Unavailable Julian HIGGINS Attending Unavailable Allergies Allergy Classification Reported Allergen(s) Allergy Type Date of Onset Reaction(s) Facility (1 source) Unable to Assess Drug allergy (disorder) 3 [facility] Repository (1 source) No Known Medication Allergies; Translations: [No Known Medication Allergies] Propensity to adverse reactions (disorder) [facility] Repository Medications Current Medications Medication Drug [...] fasting glucose] Episodic Disorders of lipid metabolism (8 sources) Hyperlipidemia; Translations: [Mixed hyperlipidemia] 06-11-2019 Chronic Essential hypertension (8 sources) Hypertensive disorder; Translations: [Essential hypertension] 06-11-2019 Chronic Genitourinary symptoms and ill-defined conditions (1 source) Proteinuria; Translations: [Proteinuria, unspecified] Onset: 4 Episodic Hyperplasia of prostate (10 sources) Benign prostatic hypertrophy with outflow obstruction; Translations: [Benign prostatic hyperplasia with lower urinary tract symptoms] Onset: 3 Chronic Other screening for suspected conditions (not mental disorders or infectious disease) (11 sources) Raised prostate specific antigen; Translations: [Elevated [...] Test Name Value Interpretation Reference Range Facility Ambulatory Visit Summaryon 0 11-12-2023 Ambulatory Visit Summary RADHA HOUSE :1950 Visit Date:11/12/2023 Ambulatory Visit Instructions Your Diagnosis Elevated PSA BPH with urinary obstruction Proteinuria Your Care Team Attending Physician - Julian HIGGINS MD Primary Care Physician - ADONIS BERRY DO Procedures Performed Transrectal biopsy of prostate using ultrasound (US) guidance (07/16/2018), Transrectal biopsy of prostate using ultrasound guidance (08/14/2017), Colonoscopy, Tonsillectomy. Discharge Vitals Heart Rate (Peripheral) 62 Respiratory Rate 16 Blood Pressure 136/87 Height 182 cm Height 72 in Weight 113.5 kg Weight 249.7 lb BMI 34.27 What to do next Scheduled Follow-Up Appointments Sunday 9:45 AM EDT With: Julian HIGGINS MD Where: [facility] Ambulatory Visit Summary RADHA HOUSE :1950 Visit Date:11/12/2023 Ambulatory Visit Instructions Your Diagnosis Elevated PSA BPH with urinary obstruction Proteinuria Your Care Team Attending Physician - Julian HIGGINS MD Primary Care Physician - ADONIS BERRY DO Procedures Performed Transrectal biopsy of prostate using ultrasound (US) guidance (07/16/2018), Transrectal biopsy of prostate using ultrasound guidance (08/14/2017), Colonoscopy, Tonsillectomy. Discharge Vitals Heart Rate (Peripheral) 62 Respiratory Rate 16 Blood Pressure 136/87 Height 182 cm Height 72 in Weight 113.5 kg Weight 249.7 lb BMI 34.27 What to do next You Need to Schedule the Following Appointments Follow Up with Julian HIGGINS MD, URL When: Comments: 1 yr w/ PSA Where: [facility] [address] [place] [phone]- [phone] Allergies No Known Medication Allergies Problems Ongoing - Any problem that you are currently receiving treatment for. BPH with urinary obstruction Elevated PSA Hyperlipidemia Hypertension Patient Survey You may receive a survey via text or e-mail asking about your office visit. Please share your experience with us by completing your survey. We appreciate your feedback and thank you for choosing us for your care. Education Materials Prostate Cancer Screening Prostate cancer screening is testing that is done to check for the presence of prostate cancer in men. The prostate gland is a walnut-sized gland that is located below the bladder and in front of the rectum in males. The function of the prostate is to add fluid to semen during ejaculation. Prostate cancer is one of the most common types of cancer in men. Who should have prostate cancer screening? Screening recommendations vary based on age and other risk factors, as well as between the professional organizations who make the recommendations. In general, screening is recommended if: ? You are age 50 to 70 and have an average risk for prostate cancer. You should talk with your health care provider about your need for screening and how often screening should be done. Because most prostate cancers are slow growing and will not cause , screening in this age group is generally reserved for men who have a 10- to 15-year life expectancy. ? You are younger than age 50, and you have these risk factors: ? Having a father, brother, or uncle who has been diagnosed with prostate cancer. The risk is higher if your family member's cancer occurred at an early age or if you have multiple family members with prostate cancer at an early age. ? Being a male who is Black or is of [place] or sub-Saharan descent. In general, screening is not recommended if: ? You are younger than age 40. ? You are between the ages of 40 and 49 and you have no risk factors. ? You are 70 years of age or older. At this age, the risks that screening can cause are greater than the benefits that it may provide. If you are at high risk for prostate cancer, your health care provider may recommend that you have screenings more often or that you start screening at a younger age. How is screening for prostate cancer done? The recommended prostate cancer screening test is a blood test called the prostate-specific antigen (PSA) test. PSA is a protein that is made in the prostate. As you age, your prostate naturally produces more PSA. Abnormally high PSA levels may be caused by: ? Prostate cancer. ? An enlarged prostate that is not caused by cancer (benign prostatic hyperplasia, or BPH). This condition is very common in older men. ? A prostate gland infection (prostatitis) or urinary tract infection. ? Certain medicines such as male hormones (like testosterone) or other medicines that raise testosterone levels. A rectal exam may be done as part of prostate cancer screening to help provide information about the size of your prostate gland. When a rectal exam is performed, it should be done after the PSA level is drawn to avoid any effect on the results. Depending on the PSA results, you may need more tests, such as: ? A physical exam to check the size of your prostate gland, if not done as part of screening. ? Blood and imaging tests. ? A procedure to remove tissue samples from your prostate gland for testing (biopsy). This is the only way to know for certain if you have prostate cancer. What are the benefits of prostate cancer screening? ? Screening can help to identify cancer at an early stage, before symptoms start and when the cancer can be treated more easily. ? There is a small chance that screening may lower your risk of dying from prostate cancer. The chance is small because prostate cancer is a slow-growing cancer, and most men with prostate cancer from a different cause. What are the risks of prostate cancer screening? The main risk of pros (more content not included)... [facility] Patient Educationon 11-12-19 Patient Education Oncology Prostate Cancer Screening Prostate cancer screening is testing that is done to check for the presence of prostate cancer in men. The prostate gland is a walnut-sized gland that is located below the bladder and in front of the rectum in males. The function of the prostate is to add fluid to semen during ejaculation. Prostate cancer is one of the most common types of cancer in men. Who should have prostate cancer screening? Screening recommendations vary based on age and other risk factors, as well as between the professional organizations who make the recommendations. In general, screening is recommended if: ? You are age 50 to 70 and have an average risk for prostate cancer. You should talk with your health care provider about your need for screening and how often screening should be done. Because most prostate cancers are slow growing and will not cause , screening in this age group is generally reserved for men who have a 10- to 15-year life expectancy. ? You are younger than age 50, and you have these risk factors: ? Having a father, brother, or uncle who has been diagnosed with prostate cancer. The risk is higher if your family member's cancer occurred at an early age or if you have multiple family members with prostate cancer at an early age. ? Being a male who is Black or is of Eugen[place] or sub-Saharan descent. In general, screening is not recommended if: ? You are younger than age 40. ? You are between the ages of 40 and 49 and you have no risk factors. ? You are 70 years of age or older. At this age, the risks that screening can cause are greater than the benefits that it may provide. If you are at high risk for prostate cancer, your health care provider may recommend that you have screenings more often or that you start screening at a younger age. How is screening for prostate cancer done? The recommended prostate cancer screening test is a blood test called the prostate-specific antigen (PSA) test. PSA is a protein that is made in the prostate. As you age, your prostate naturally produces more PSA. Abnormally high PSA levels may be caused by: ? Prostate cancer. ? An enlarged prostate that is not caused by cancer (benign prostatic hyperplasia, or BPH). This condition is very common in older men. ? A prostate gland infection (prostatitis) or urinary tract infection. ? Certain medicines such as male hormones (like testosterone) or other medicines that raise testosterone levels. A rectal exam may be done as part of prostate cancer screening to help provide information about the size of your prostate gland. When a rectal exam is performed, it should be done after the PSA level is drawn to avoid any effect on the results. Depending on the PSA results, you may need more tests, such as: ? A physical exam to check the size of your prostate gland, if not done as part of screening. ? Blood and imaging tests. ? A procedure to remove tissue samples from your prostate gland for testing (biopsy). This is the only way to know for certain if you have prostate cancer. What are the benefits of prostate cancer screening? ? Screening can help to identify cancer at an early stage, before symptoms start and when the cancer can be treated more easily. ? There is a small chance that screening may lower your risk of dying from prostate cancer. The chance is small because prostate cancer is a slow-growing cancer, and most men with prostate cancer from a different cause. What are the risks of prostate cancer screening? The main risk of prostate cancer screening is diagnosing and treating prostate cancer that would never have caused any symptoms or problems. This is called overdiagnosisand overtreatment. PSA screening cannot tell you if your [...] cause unnecessary stress or other side effects. Questions to ask your health care provider ? When should I start prostate cancer screening? ? What is my risk for prostate cancer? ? How often do I need screening? ? What type of screening tests do I need? ? How do I get my test results? ? What do my results mean? ? Do I need treatment? Where to find more information ? The [place] [employer]: www.cancer.org ? [place] [employer]: www.auanet.org Contact a health care provider if: ? You have difficulty urinating. ? You have pain when you urinate or ejaculate. ? You have blood in your urine or semen. ? You have pain in your back or in the area of your prostate. Summary ? Prostate cancer is a common type of cancer in men. The prostate gland is located below the bladder and in front of the rectum. This gland adds flu (more content not included)... [facility] Urology Office/Clinic Noteon 11-12-2023 Urology Office/Clinic Note Chief Complaint 15 month PSA f/u HPI Staff 15 month f/u w/ PSA. Previous dx: BPH wiht obstruction, elevated PSA. S/p TRUS/bx 08/14/17 and 07/16/18. Prostate MRI done 09/11/22 at [facility]. Results were given over the phone 09/12/22. PSA 08/16/23 - 10.0 & 24.8% (08/16/22 - 12.58). 1-2x/night to void. Is unsure if it's the urge to void to wakes him. q3-4hrs during the day. Still has the occasional burn when he voids after waiting too long. Ongoing for yrs. Weak, intermittent stream during the night. No issues with stream during the day. Denies hematuria. No concerns at this time. History of Present Illness Tests reviewed: reviewed UA, PSA I have reviewed the previous health record information and history for this patient from Dr. Higgins. I have reviewed and verified the staff HPI to be accurate for this encounter. Review of Systems PHQ Score Initial Depression Screen Score: 0 SCORE ROS - Provider Constitutional: denies weight loss, denies hot flashes. Eyes: denies eye problems. Gastrointestinal: denies nausea, denies vomiting. Cardiovascular: denies chest pain or angina. Integumentary: no dryness Musculoskeletal: denies musculoskeletal symptoms. ENMT: denies otolaryngeal symptoms. Respiratory: no shortness of breath. Heme/Lymph: denies easy bleeding tendency, denies easy bruising tendency. Psychiatric: no confusion, no anxiety. Genitourinary: See HPI. Physical Exam Vitals & Measurements HR: 62(Peripheral) RR: 16 BP: 136/87 HT: 72 in HT: 182 cm WT: 113.5 kg WT: 249.7 lb BMI: 34.27 General Appearance: alert, no distress, well nourished, well developed male. Genitourinary: normal scrotum, normal testes, normal urethra, normal epididymis, normal vas deferens/spermatic cord. Flank Pain: none. Bladder: nonpalpable. Assessment/Plan 1. Elevated PSA (R97.20: Elevated prostate specific antigen [PSA]) PSA 04/2020 - 7 08/10/21 - 7.8 08/16/22 - 12.58 08/16/23 - 10 & 24.8% Negative TRUS/bx 07/2017 & 06/2018. Negative prostate MRI 06/2019. Prostate MRI 09/11/22 [facility] - Prostate volume 146 mL. No evidence of prostate malignancy. [place] 08/18/22: 35g, benign PSA has decreased from prior. States he was on abx 2wks prior to this blood draw. Discussed pt likely has low grade prostatitis which is not clinically significant. Will continue to monitor PSA level. -PSA in 1 year 2. BPH with urinary obstruction (N40.1: Benign prostatic hyperplasia with lower urinary tract symptoms) Not currently taking any BPH meds. UA today negative for infection. Continues to get up 1-2x/night, unsure if he is waking due to urge. not emptying all the time. Denies urgency during the day. Voids q3-4hrs. Feels he empties completely during the day. Does not always feel empty after voiding during the night. Offered to try a prostate medication. Discussed possible SEs. Pt declines medical management at this time. -If pt gets infections in future, consider starting medication 3. Proteinuria (R80.9: Proteinuria, unspecified) UA today shows trace protein. Discussed relation to declining kidney function and DM. Pt states he has appt with Dr. Berry tomorrow and will discuss this with him. Follow-up With When Contact Information RONALDO THRASHER, Julian Hayden, URL [facility] [address] [place] [address] [phone] Additional Instructions: 1 yr w/ PSA Patient Education Prostate Cancer Screening I, Leigh Ann Weiss, personally scribed for Dr. Higgins on 11/12/2023 10:22:25. . Documentation recorded by the scribe, Leigh Ann Weiss, accurately reflects the services(s) I performed and decisions made by me. Authenticated by Dr. Higgins on 11/12/2023 10:27:15. Problem List/Past Medical History Ongoing BPH with urinary obstruction Elevated PSA Hyperlipidemia Hypertension Historical No qualifying data Procedure/Surgical History Transrectal biopsy of prostate using ultrasound (US) guidance (07/16/2018), Transrectal biopsy of prostate using ultrasound guidance (08/14/2017), Colonoscopy, Tonsillectomy. Medications No active medications Allergies No Known Medication Allergies Social History Tobacco - Denies Tobacco Use, 08/04/2019 Never (less than 100 in lifetime) Tobacco Use:. Never Smokeless Tobacco Use:. Household tobacco concerns: No. Yes, 11/12/2023 Family History Cancer of liver: Mother. Diabetes mellitus type 2: Mother. Hypertension: Mother. Immunizations Vaccine Date Status Comments SARS-CoV-2 (COVID-19) mRNAMUL.ORD![id number] 05/15/2022 Recorded SARSCoV2 mRNA(clkzrmhfl-cjvx-h ucros) vac 11/14/2021 Recorded SARS-CoV-2 (COVID-19) mRNA BNT-162b2 vax 05/17/2021 Recorded 2023-11-12: TPV65 SARS-CoV-2 (COVID-19) mRNA BNT-162b2 vax 10/02/2020 Recorded 2023-11-12: TPV65 SARS-CoV-2 (COVID-19) mRNA BNT-162b2 vax 09/11/2020 Recorded 2023-11-12: TPV65 SARS-CoV-2 (COVID-19) mRNA BNT-162b2 vax 2020 Recorded Pt has had 3 shots to date but does not know (more content not included)... [facility] Comment on above: Result Comment: Elec tronically Signed By: RONALDO THRASHER, Julian Hayden\.br\Date and Time Signed: 11/12/23 10:27 EDT\.br\Electronically Co-Signed By: Leigh Ann Weiss\.br\Date and Time Co-Signed: 11/12/23 10:24 EDT Lab Reportson 08-17-2023 Lab Reports [id number]. [id number] [facility] Creatinine (Bld) [Mass/Vol]O rdered By: Julian Higgins on 09-11-2022 Creatinine [Mass/Vol] 0.9 mg/dL 0.6-1.3 [facility] Comment on above: ER/ESD physician is notified/shown all ISTAT results.Critical values may be confirmed by laboratory testing ifdeemed necessary by ER attending doctor. ISTAT XRay CREon 09-11-2022 Creatinine [Mass/Vol] 0.9 mg/dL Normal 0.6-1.3 [facility] Comment on above: Result Comment: ER/E SD physician is notified/shown all ISTAT results. Critical values may be confirmed by laboratory testing if deemed necessary by ER attending doctor. Performed By: #### I SCRE #### [address] Point of Care testing , ISTAT GFR ( > 60 Normal [facility] Comment on above: Result Comment: GFR estimated reference range: According to KDOQI guidelines, <60 ml/min/1.73m2 is sufficient to diagnose a patient with chronic kidney disease. PERFORMED BY: [place] [address] PATHOLOGIST [employer] FRANK ELLIS M.D. Performed By: #### I SCRE #### [address] Point of Care testing , ISTAT GFR (Non- Am > 60 Normal [facility] Comment on above: Performed By: #### I SCRE #### [address] Point of Care testing , MR prostate wo/w conon 09-11 MR prostate wo/w con [facility] Main [place] [address] [place], [place] [id number] MRI Report Signed Patient: Radha House MR#: [id number] : 1950 Acct:[id number] Age/Sex: 72 / M ADM Date: 09/11/22 Loc: MR Room: Type: [facility] Attending Dr: Julian Higgins MD Copies [...] Lucas Jr., D.O.09/11/2022 6:29 PM Dictation Location: [place] [address] Transcribed By: [facility] 09/11/221828 Dictated By: Christopher Lucas Jr, DO 09/11/221823 Signed By: 09/11/221828 Normal [facility] No Panel InformationOrdered By: Julian Higgins on 09-11-2022 POC Estimated GFR > 60 [facility] Comment on above: GFR estimated refere nce range: According to KDOQI guidelines, <60 ml/min/1.73m2 is sufficient to diagnose a patient with chronic kidney disease. POC Estimated GFR Non- Amer > 60 [facility] Vital Signs Date Time Vital Sign Value Performing Clinician Facility 11-12-2023 09:28-0400 Blood Pressure Location Julian HIGGINS [facility] 11-12-2023 09:28-0400 Diastolic blood pressure 87 mm[Hg] Julian HIGGINS [facility] 11-12-2023 09:28-0400 Heart rate 62 /min Julian HIGGINS [facility] 11-12-2023 09:28-0400 Respiratory rate 16 /min Julian HIGGINS [facility] 11-12-2023 09:28-0400 Systolic blood pressure 136 mm[Hg] Julian HIGGINS [facility] 07-27-2023 10:45-0500 Body height 177.8 cm Adonis Ball Other [facility] Other 07-27-2023 10:45-0500 Body mass index (BMI) [Ratio] 36.33 kg/m2 Adonis Ball Other [facility] Other 07-27-2023 10:45-0500 Body weight 114.85 kg Adonis Ball Other [facility] Other 07-27-2023 10:45-0500 Diastolic blood pressure 95 mm[Hg] Adonis Ball Other [facility] Other 07-27-2023 10:45-0500 Respiratory rate 16 /min Adonis Ball Other [facility] Other 07-27-2023 10:45-0500 Systolic blood pressure 153 mm[Hg] Adonis Ball Other [facility] Other 07-18-2023 10:15-0500 Body height 177.8 cm Adonsi Ball Other [facility] Other 07-18-2023 10:15-0500 Body mass index (BMI) [Ratio] 36.3 kg/m2 Adonis Ball Other [facility] Other 07-18-2023 10:15-0500 Body weight 114.76 kg Adonis Ball Other [facility] Other 07-18-2023 10:15-0500 Diastolic blood pressure 99 mm[Hg] Adonis Ball Other [facility] Other 07-18-2023 10:15-0500 Respiratory rate 12 /min Adonis Ball Other [facility] Other 07-18-2023 10:15-0500 Systolic blood pressure 157 mm[Hg] Adonis Ball Other [facility] Other 07-11-2023 13:45-0500 Body height 177.8 cm Adonis Ball Other [facility] Other 07-11-2023 13:45-0500 Body mass index (BMI) [Ratio] 36.1 kg/m2 Adonis Ball Other [facility] Other 07-11-2023 13:45-0500 Body weight 114.13 kg Adonis Ball Other [facility] Other 07-11-2023 13:45-0500 Diastolic blood pressure 94 mm[Hg] Adonis Ball Other [facility] Other 07-11-2023 13:45-0500 Respiratory rate 12 /min Adonis Ball Other [facility] Other 07-11-2023 13:45-0500 Systolic blood pressure 142 mm[Hg] Adonis Berry Other [facility] Other 08-18-2022 09:43-0500 Blood Pressure Location Julian HIGGINS [facility] 08-18-2022 09:43-0500 Diastolic blood pressure 83 mm[Hg] Julian HIGGINS [facility] 08-18-2022 09:43-0500 Heart rate 75 /min Julian HIGGINS [facility] 08-18-2022 09:43-0500 Respiratory rate 16 /min Julian HIGGINS [facility] 08-18-2022 09:43-0500 Systolic blood pressure 135 mm[Hg] Julianvignesh HIGGINS [facility] Encounters Encounter Date Encounter Type Care Provider Facility Start: 11-10-2024 ambulatory Julian HIGGINS Facili ty:[facility] Start: 11-12-2023 End: 11-13-2023 ambulatory Julian HIGGINS Facility:[facility] Start: 11-12-2023 End: 11-12-2023 Patient encounter procedure Julian HIGGINS [facility] Start: 07-31-2023 End: 07-31-2023 ambulatory Adonis Berry Other [facility] Other Start: 07-31-2023 Telephone encounter [facility] Start: 07-27-2023 End: 07-27-2023 ambulatory Adonis Berry Other [facility] Other Start: 07-27-2023 Office outpatient vi sit 15 minutes Adonis Ball [facility] Start: 07-18-2023 End: 07-18-2023 ambulatory Adonis Berry Other [facility] Other Start: 07-18-2023 Office outpatient vi sit 15 minutes Adonis Ball [facility] Start: 07-18-2023 Telephone encounter Adonis Berry [facility] Start: 07-13-2023 End: 07-13-2023 ambulatory Adonis Berry Other [facility] Other Start: 07-13-2023 Telephone encounter Adonis Berry [facility] Start: 07-11-2023 End: 07-11-2023 ambulatory Adonis Berry Other [facility] Other Start: 07-11-2023 Office outpatient vi sit 15 minutes Adonis Ball [facility] Start: 09-11-2022 End: 09-11-2022 ambulatory Adonis Berry Facility:[facility] Start: 09-11-2022 End: 09-11-2022 ambulatory DO Adonis Sotne Work Phone: [facility] Work Phone: Start: 09-11-2022 End: 09-11-2022 Patient encounter procedure DO Adonis Berry Work Phone: [facility] [place] Work Phone: Start: 08-18-2022 End: 08-18-2022 Patient encounter procedure Julian HIGGINS [facility] Start: 08-16-2022 End: 08-17-[address] JULIAN HIGGINS Facility:[facility]1 Procedures Date Procedure Procedure Detail Performing Clinician Start: 09-11-2022 MR prostate wo/w con DO Adonis Ball Work Phone: Start: 08-16-[address] ANTONIETA HIGGINS Comment on above: Performed By: #### P SAD #### [facility] [address] [place] [address] Dr. Antione Alves Start: 07-16-2018 Transrectal biopsy o f prostate using ultrasound guidance Julian HIGGINS Start: 08-14-2017 Transrectal biopsy o f prostate using ultrasound guidance Julian HIGGINS Colonoscopy Julian HIGGINS Tonsillectomy Julian HIGGINS Immunizations Immunization Date Immunization Notes Care Provider Fa cili 05-15-2022 SARS-CoV-2 (COVID-19 ) [id number] Julian HIGGINS [facility] 11-14-2021 SARS-CoV-2 mRNA (nazuwjydfnm-tdpu-wbuj ose) vaccine Julian HIGGINS [facility] 05-17-2021 SARS-CoV-2 (COVID-19 ) mRNA BNT-162b2 vax Julian HIGGINS [facility] Comment on above: Result Comment: 2023: [id number] 10-02-2020 SARS-CoV-2 (COVID-19 ) mRNA BNT-162b2 vax Julian HIGGINS [facility] Comment on above: Result Comment: 2023: [id number] 09-11-2020 SARS-CoV-2 (COVID-19 ) mRNA BNT-162b2 vax Julian HIGGINS [facility] Comment on above: Result Comment: 2023: [id number] 07-30-2020 SARS-CoV-2 (COVID-19 ) mRNA BNT-162b2 vax Julian HIGGINS [facility] Comment on above: Result Comment: Pt h as had 3 shots to date but does not know the dates 04-04-2017 diphtheria, tetanus toxoids and acellular pertussis vaccine, unspecified formulation Adonis Berry Other [employer] Other Payers Date Payer Category Payer Self-pay 1958 Medicare [id number] 1950 Unknown [id number] 1950 Unknown [id number] 1950 Unknown [id number] Unknown [id number] Social History Date Type Detail Facility Start: 06-13-2019 End: 11-12-2023 Tobacco smoking status Never smoked tobacco (finding) [facility] Sex Assigned At Male [facility] Start: 1950 Sex Assigned At Male F [facility] Tobacco smoking status Never [facility] Functional Status Date Assessment Result Facility 11-12-2023 Functional Status N/A [facility] 08-18-2022 Functional Status N/A [facility] Clinical Notes 08-18-2022 to 11-12-2023 Note Date & Type Note Facility 11-12-2023 Hospital Discharge instructions Patient Education 11/12/2023 10:20:14 Prostate Cancer Screening Prostate Cancer Screening Prostate cancer screening is testing that is done to check for the presence of prostate cancer in men. The prostate gland is a walnut-sized gland that is located below the bladder and in front of the rectum in males. The function of the prostate is to add fluid to semen during ejaculation. Prostate cancer is one of the most common types of cancer in men. Who should have prostate cancer screening? Screening recommendations vary based on age and other risk factors, as well as between the professional organizations who make the recommendations. In general, screening is recommended if: You are age 50 to 70 and have an average risk for prostate cancer. You should talk with your health care provider about your need for screening and how often screening should be done. Because most prostate cancers are slow growing and will not cause , screening in this age group is generally reserved for men who have a 10- to 15-year life expectancy. You are younger than age 50, and you have these risk factors: ?Having a father, brother, or uncle who has been diagnosed with prostate cancer. The risk is higher if your family member's cancer occurred at an early age or if you have multiple family members with prostate cancer at an early age. ?Being a male who is Black or is of [place] or sub-Saharan descent. In general, screening is not recommended if: You are younger than age 40. You are between the ages of 40 and 49 and you have no risk factors. You are 70 years of age or older. At this age, the risks that screening can cause are greater than the benefits that it may provide. If you are at high risk for prostate cancer, your health care provider may recommend that you have screenings more often or that you start screening at a younger age. How is screening for prostate cancer done? The recommended prostate cancer screening test is a blood test called the prostate-specific antigen (PSA) test. PSA is a protein that is made in the prostate. As you age, your prostate naturally produces more PSA. Abnormally high PSA levels may be caused by: Prostate cancer. An enlarged prostate that is not caused by cancer (benign prostatic hyperplasia, or BPH). This condition is very common in older men. A prostate gland infection (prostatitis) or urinary tract infection. Certain medicines such as male hormones (like testosterone) or other medicines that raise testosterone levels. A rectal exam may be done as part of prostate cancer screening to help provide information about the size of your prostate gland. When a rectal exam is performed, it should be done after the PSA level is drawn to avoid any effect on the results. Depending on the PSA results, you may need more tests, such as: A physical exam to check the size of your prostate gland, if not done as part of screening. Blood and imaging tests. A procedure to remove tissue samples from your prostate gland for testing (biopsy). This is the only way to know for certain if you have prostate cancer. What are the benefits of prostate cancer screening? Screening can help to identify cancer at an early stage, before symptoms start and when the cancer can be treated more easily. There is a small chance that screening may lower your risk of dying from prostate cancer. The chance is small because prostate cancer is a slow-growing cancer, and most men with prostate cancer from a different cause. What are the risks of prostate cancer screening? The main risk of prostate cancer screening is diagnosing and treating prostate cancer that would never have caused any symptoms or problems. This is called overdiagnosisand overtreatment. PSA screening cannot tell you if your [...] cause unnecessary stress or other side effects. Questions to ask your health care provider When should I start prostate cancer screening? What is my risk for prostate cancer? How often do I need screening? What type of screening tests do I need? How do I get my test results? What do my results mean? Do I need treatment? Where to find more information The [place] [employer]: www.cancer.org [place] [employer]: www.auanet.org Contact a health care provider if: You have difficulty urinating. You have pain when you urinate or ejaculate. You have blood in your urine or semen. You have pain in your back or in the area of your prostate. Summary Prostate cancer is a common type of cancer in men. The prostate gland is located below the bladder and in front of the rectum. This gland adds fluid to semen during ejaculation. Prostate cancer screening may identify cancer at an early stage, when the cancer can be treated more easily and is less likely to have spread to other areas of the body. The prostate-specific antigen (PSA) test is the recommended screening test for prostate cancer, but it has associated risks. Discuss the risks and benefits of prostate cancer screening with your health care provider. If you are age 70 or older, the risks that screening can cause are greater than the benefits that it may provide. This information is not intended to replace advice given to you by your health care provider. Make sure you discuss any questions you have with your health care provider. Document Revised: 01/09/2022 Document Reviewed: 01/09/2022 [employer] Patient Education 2022 [employer] Follow Up Care 08/18/2022 10:50:46 With:RONALDO THRASHER, Julian Hayden, URL Address: [facility] [address], [place] [address]- [phone] When: Unknown Comments:1 yr w/ PSA [facility] 07-27-2023 Evaluation note Encounter Date Diagnosis Assessment [...] lingering but improved. Complete 10 day isolation [employer] Other 12-20-2023 Evaluation note* Encounter Date Diagnosis [...] places for complete 10 days Initiate Paxlovid [employer] Other 12-20-2023 Evaluation note* Encounter Date Diagnosis Assessment Notes Treatment Notes Treatment Clinical Notes Jun, COVID-19 (ICD-10 - U07.1) [employer] Other 12-13-2023 Evaluation note* Encounter Date Diagnosis Assessment Notes Treatment Notes Treatment Clinical Notes Jun, Cellulitis of right lower extremity (ICD-10 - L03.115) Elevate and warm compresses. Begin antibiotics. _update in 2 days and recheck in week. [employer] Other 01-20-2023 Hospital Discharge instructions Patient Education [...] have oneof these risk factors: ?Being of -[place] descent. ?Having a family history of prostate [...] you: Are older than age 55. Are -[place]. Have a father, brother, or uncle who [...] 04/26/2018 Document Revised: 06/28/2018 Document Reviewed: 04/26/2018 [employer] Patient Education 2020 [employer]. Follow Up Care 08/15/2021 12:39:57 With:Julian HIGGINS MD, URL Address: [address] [place], [place] [id number]- When: Unknown [facility] [employer] evaluation + Plan note Future Appointments Appointment Date:08/17/2023 09:30:00 AM Scheduled Provider:Julian HIGGINS MD Location:[facility] Appointment Type:URO Office Visit Diagnostic Tests Pending * PSA Total 06/29/23 [facility] [employer] evaluation + Plan note Future Appointments Appointment Date:11/10/2024 09:45:00 AM Scheduled Provider:Julian HIGGINS MD Location:[facility] Appointment Type:URO Office Visit Diagnostic Tests Pending * PSA Total 11/12/23 [facility] [email or web address] noteNo assessment information available [facility] Work Phone: [facility] [employer] Other History general Narrative - Reported* Type Description Date Medical History Hyperlipidemia, mixed Medical History Benign localized pro static hyperplasia without lower urinary tract symptoms (LUTS) Medical History Elevated PSA Medical History IFG (impaired fasting glucose) Medical History Essential hypertension Surgical History COLONOSCOPY 05/2018 Hospitalization History see surgical history [facility] Other Hospital course Narrative No data available for this section [facility] [employer] progress note No data available for this section [facility] Summary Purpose Family History No Family History Records FoundNo Family History Records Found No data available for this section No Family History Records Found Advance Directives No Advanced Directives Records Found Advance Directive Response Recorded Date/ Time Advance Directives No August 30, 2022 1:25pm Chief Complaint and Reason for Visit Chief Complaint r97.20 Additional Source Comments (unrecognized sect ion and content) No Status Records FoundNo Status Records FoundNo Status Records Found INFORMATION SOURCE (unrecogn ized section and content) DATE CREATED AUTHOR 08/17/2022 [facility] DATE CREATED AUTHOR AUTHOR'S ORGANIZ ATION 09/20/2022 [facility] DATE CREATED AUTHOR AUTHOR'S ORGANIZ ATION 11/13/2023 [facility] Patient Care team informatio n (unrecognized section [...] BE BASED ON THE PRIMARY CLINICAL RECORDS. [employer] provides no warranty or guarantee of the accuracy or completeness of information in this document.
== END 2024-03-14 09:29 | disposition home or self-care (01) ==
LOC: RAD 09:29
PROVIDERS: PCP Internal Medicine; Visit Provider Internal Medicine
DX: R05.9 Cough, unspecified (principal)
CPT/HCPCS: 71046

== ENCOUNTER 2024-09-26 13:50 | Outpatient (OUT) | payer MEDICARE, SELFPAY ==
--- OUTSIDE RECORDS SUMMARY | 2024-09-26 14:08 | XMS_ITS | CCD ---
Author Organization [facility] Care Team Providers Care Supervisor Doping Name Role Phone DR JULIAN HOGAN Admitting Unavailable RONALDO, DR VIVAS Attending Unavailable STONE, DR MILNER Primary Care Unavailable RONALDO, DR VIVAS Consulting Unavailable ADONIS RITTER Primary Care Physician MD Julian Hogan Attending Provider DO Adonis Ritter Primary Care Provider Adonis Ritter Unavailable Julian HOGAN Attending Unavailable Julian HOGAN Attending Unavailable DO Adonis Ritter Primary Care Provider MD Bettye Andres Attending Provider Adonis Ritter Primary Care Unavailable Bettye Andres Attending Unavailable Bettye Andres Admitting Unavailable Allergies Allergy Classification Reported Allergen(s) Allergy Type Date of Onset Reaction(s) Facility (1 source) No Known Medication Allergies; Translations: [No Known Medication Allergies] Propensity to adverse reactions (disorder) [facility] Repository Medications Current Medications Medication Drug Class(es) Dates Sig (Normalized) Sig (Original) doxycycline hyclate 100 mg oral capsule (6 sources) Tetracycline-clas s Drug Start: 07-11-2023 take 1 capsule by mouth every twelve hours Doxycycline Hyclate 100 MG 1 capsule Orally Twice a day for 7 days Jun, Active [place] (No Known Home Meds) (1 source) Start: 03-14-2024 [place] (No Known Home Meds) Active March 14, 2024 12:00am Completed/Discontinued Medications Medication Drug Class(es) Dates Sig [...] Orally bid for 5 days Jun, Active Sod Picosulf-Mag Ox-Citric Ac (1 source) Start: 02-12-2024 End: 03-14-2024 take 1 dose by mouth once daily Sod Picosulf-Mag Ox-Citric Ac (Clenpiq) 10 mg-3.5 gram- 12 gram/175 mL solution Discontinued 175 ML PO Daily 350 0 February 12, 2024 12:00am March 14, 2024 8:30am take first dose at 3PM evening before colonoscopy; 2nd dose at 9pm the night before colonoscopy Suprep Bowel Prep Kit 17.5-3.13-1.6 GM/180ML (6 sources) Start: 05-20-2018 Suprep Bowel P rep Kit 17.5-3.13-1.6 GM/180ML 1 bottle AT 4 PM AND ONE BOTTLE AT 11 PM DAY PRIOR TO COLONSOCOPY Orally Once a day for 1 days Apr, Not-Taking/PRN Problems Active Problems Problem Classification Problem Date Documented Da te Episodic/Chronic Diabetes mellitus without complication (8 sources) Impaired fasting glycemia; Translations: [Impaired fasting glucose] 09-11-2023 Episodic Disorders of lipid metabolism (10 sources) Hyperlipidemia; Translations: [Mixed hyperlipidemia] 06-11-2019 Chronic Essential hypertension (10 sources) Hypertensive disorder; Translations: [Essential hypertension] 06-11-2019 Chronic Genitourinary symptoms and ill-defined conditions (1 source) Proteinuria; Translations: [Proteinuria, unspecified] Onset: 4 Episodic Hyperplasia of prostate (12 sources) Benign prostatic hypertrophy with outflow obstruction; Translations: [Benign prostatic hyperplasia with lower urinary tract symptoms] Onset: 3 Chronic Other and unspecified benign neoplasm (1 source) Adenomatous polyp of colon ; Translations: [Benign neoplasm of colon, unspecified] 11-14-2023 Episodic Other lower respiratory disease (1 source) Cough; Translations: [Cough] 04-09-2024 Episodic Other nutritional; endocrine; and metabolic disorders (1 source) Obese class I; Translations: [Obesity, unspecified] 11-13-2023 Chronic Other nutritional; endocrine; and metabolic disorders (1 source) Obesity; Translations: [Obesity, unspecified] 04-09-2024 Chronic Other nutritional; endocrine; and metabolic disorders (1 source) Obesity, unspecified; Translations: [Obesity, unspecified] 03-14-2024 Chronic Other screening for suspected conditions (not mental disorders or infectious disease) (13 sources) Raised prostate specific antigen; Translations: [Elevated [...] Test Name Value Interpretation Reference Range Facility [facility] 04-09-2024 L Specimen: [id number] Received: 04/09/24 Status: BETINA Varela Num: [id number] Spec Type: Surgical Subm Dr: Bettye Andres MD Tissues: A Colon Biopsy (DESCENDING COLON POLYPECTOMY) B Colon Biopsy (RECTAL POLYP) Procedures: HE/4, Gross/Micro L4/2 Age/ Patient Sex Location Account Attending Physician Radha House 73/M [id number] Bettye Andres MD SPEC NUM: [id number] RECD: 04/09/24 STATUS: BETINA AVERY NUM: [id number] MICHAEL: 04/09/[address]: Bettye Andres MD ENTERED: 04/09/[address] [facility] [address]: SPEC TYPE: Surgical DEPT: S ENTERED BY: [id number] RECV BY: [id number] ORDERED: HE/4, Gross/Micro L4/2 ORDERED: HE/4, Gross/Micro L4/2 Pathological Diagnosis A. Polyp, descending colon: Tubular Adenoma. - Negative For High Grade Dysplasia And Malignancy. B. Polyp, rectum: Hyperplastic polyp. Clinical Information Screening Gross Description Part a received in formalin with the patient's name and descending colon polyp are 4 blanca portions of soft tissue ranging in size from 0.2 to 0.4 cm in greatest dimension. The specimen is entirely submitted in cassette A1. Part B received in formalin with the patient's name and rectal polyp is a single blanca portion of soft tissue measuring 0.4 cm in greatest dimension. The specimen is entirely submitted in cassette B1. -------- Specimen: [id number] Received: 04/09/24 Status: YAACarlos Avery Num: [id number] Spec Type: Surgical Subm Dr: Bettye Andres MD Tissues: A Colon Biopsy (DESCENDING COLON POLYPECTOMY) B Colon Biopsy (RECTAL POLYP) Procedures: HE/Esvin, Gross/Micro L4/2 -------- Patient: Radha House [id number] (Continued) -------- Specimen: [id number] Received: 04/09/24 (Continued) Signed (signature on file) Janett Partida MD 04/16/24 1504 -------- Specimen: [id number] Received: 04/09/24 Status: BETINA Varela Num: [id number] Spec Type: Surgical Subm Dr: Bettye Andres MD Tissues: A Colon Biopsy (DESCENDING COLON POLYPECTOMY) B Colon Biopsy (RECTAL POLYP) Procedures: /Esvin, Gross/Micro L4/2 -------- Patient: Radha House [id number] (Continued) -------- Specimen: [id number] Received: 04/09/24 (Continued) CPT Codes 38542z1 -------- -------- Specimen: [id number] Received: 04/09/24 Status: BETINA Varela Num: [id number] Spec Type: Surgical Subm Dr: Bettye Andres MD Tissues: A Colon Biopsy (DESCENDING COLON POLYPECTOMY) B Colon Biopsy (RECTAL POLYP) Procedures: Pan ROBLES/Olive L4/2 -------- Patient: Radha House [id number] (Continued) -------- Signed (signature on file) Janett Partida MD 04/16/24 1504 Normal [facility] Ambulatory Visit Summaryon 0 11-12-2023 Ambulatory Visit Summary RADHA HOUSE :1950 Visit Date:11/12/2023 Ambulatory Visit Instructions Your Diagnosis Elevated PSA BPH with urinary obstruction Proteinuria Your Care Team Attending Physician - RONALDO THRASHER, Julian Hayden Primary Care Physician - ADONIS RITTER DO Procedures Performed Transrectal biopsy of prostate using ultrasound (US) guidance (07/16/2018), Transrectal biopsy of prostate using ultrasound guidance (08/14/2017), Colonoscopy, Tonsillectomy. Discharge Vitals Heart Rate (Peripheral) 62 Respiratory Rate 16 Blood Pressure 136/87 Height 182 cm Height 72 in Weight 113.5 kg Weight 249.7 lb BMI 34.27 What to do next Scheduled Follow-Up Appointments Sunday 9:45 AM EDT With: Julian HOGAN MD Where: [facility] Ambulatory Visit Summary RADHA HOUSE :1950 Visit Date:11/12/2023 Ambulatory Visit Instructions Your Diagnosis Elevated PSA BPH with urinary obstruction Proteinuria Your Care Team Attending Physician - Julian HOGAN MD Primary Care Physician - ADONIS RITTER DO Procedures Performed Transrectal biopsy of prostate using ultrasound (US) guidance (07/16/2018), Transrectal biopsy of prostate using ultrasound guidance (08/14/2017), Colonoscopy, Tonsillectomy. Discharge Vitals Heart Rate (Peripheral) 62 Respiratory Rate 16 Blood Pressure 136/87 Height 182 cm Height 72 in Weight 113.5 kg Weight 249.7 lb BMI 34.27 What to do next You Need to Schedule the Following Appointments Follow Up with Julian HOGAN MD, URL When: Comments: 1 yr w/ PSA Where: [facility] [address] [place] [address] [phone] Allergies No Known Medication Allergies Problems Ongoing [...] of pros (more content not included)... Normal [facility] Patient Educationon 11-12-19 24 Patient Education Oncology Prostate Cancer Screening Prostate [...] Where to find more information ? The [place] [employer]: www.cancer.org ? [place] [employer]: www.auanet.org Contact a health care [...] adds flu (more content not included)... Normal [facility] Urology Office/Clinic Noteon 11-12-2023 Urology Office/Clinic Note Chief Complaint 15 month PSA f/u HPI Staff 15 month f/u w/ PSA. Previous dx: BPH wiht obstruction, elevated PSA. S/p TRUS/bx 08/14/17 and 07/16/18. Prostate MRI done 09/11/22 at [facility]. Results were given over the phone 09/12/22. [...] and history for this patient from Dr. Hogan. I have reviewed and verified the staff [...] Negative prostate MRI 06/2019. Prostate MRI 09/11/22 [facility] - Prostate volume 146 mL. No evidence [...] Pt states he has appt with Dr. Ritter tomorrow and will discuss this with him. Follow-up With When Contact Information RONALDO THRASHER, Julian Hayden, URL [facility] [address], [place] [address] [phone] Additional Instructions: 1 yr w/ PSA Patient Education Prostate Cancer Screening I, Leigh Ann Weiss, personally scribed for Dr. Hogan on 11/12/2023 10:22:25. . Documentation recorded by the scribe, Leigh Ann Weiss, accurately reflects the services(s) I performed and decisions made by me. Authenticated by Dr. Hogan on 11/12/2023 10:27:15. Problem List/Past Medical History [...] Immunizations Vaccine Date Status Comments SARS-CoV-2 (COVID-19) mRNAMUL.[id number] 05/15/2022 Recorded SARSCoV2 mRNA(gclqnqtaq-bbvy-y ucros) vac 11/14/2021 Recorded SARS-CoV-2 (COVID-19) mRNA BNT-162b2 vax 05/17/2021 Recorded 2023-11-12: [id number] SARS-CoV-2 (COVID-19) mRNA BNT-162b2 vax 10/02/2020 Recorded 2023-11-12: TPV65 SARS-CoV-2 (COVID-19) mRNA BNT-162b2 vax 09/11/2020 Recorded 2023-11-12: TPV65 SARS-CoV-2 (COVID-19) mRNA BNT-162b2 vax 2020 Recorded Pt has had 3 shots to date but does not know (more content not included)... Normal [facility] Comment on above: Result Comment: Elec tronically Signed By: RONALDO THRASHER, Julian Hayden\.lisa\Date and Time Signed: 11/12/23 10:27 EDT\.br\Electronically Co-Signed By: Leigh Ann Weiss\.br\Date and Time Co-Signed: 11/12/23 10:24 EDT [facility] 08-17-2023 Lab Reports [id number]. [id number] Normal [facility] Creatinine (Bld) [Mass/Vol]O rdered By: Julian Hogan on 09-11-2022 Creatinine [Mass/Vol] 0.9 mg/dL 0.6-1.3 [facility] Comment on above: ER/ESD physician is notified/shown all ISTAT results.Critical values may be confirmed by laboratory testing ifdeemed necessary by ER attending doctor. No Panel InformationOrdered By: Julian Hogan on 09-11-2022 POC Estimated GFR > 60 [facility] Comment on above: GFR estimated refere nce range: According to KDOQI guidelines, <60 ml/min/1.73m2 is sufficient to diagnose a patient with chronic kidney disease. POC Estimated GFR Non- Amer > 60 [facility] Vital Signs Date Time Vital Sign Value Performing Clinician Facility 04-09-2024 09:08-0400 Diastolic blood pressure 88 mm[Hg] DO Adonis Ball Work Phone: [facility] 04-09-2024 09:08-0400 Heart rate 59 /min DO Adonis Ball Work Phone: [facility] 04-09-2024 09:08-0400 Respiratory rate 16 /min DO Adonis Ball Work Phone: [facility] 04-09-2024 09:08-0400 SaO2% (BldA) [Mass fraction] 96 % DO Adonis Ball Work Phone: [facility] 04-09-2024 09:08-0400 Systolic blood pressure 137 mm[Hg] DO Adonis Ball Work Phone: [facility] 04-09-2024 06:57-0400 Body height 180.34 cm DO Adonis Ball Work Phone: [facility] 04-09-2024 06:57-0400 Body weight 113.39 kg DO Adonis Ball Work Phone: [facility] 03-14-2024 08:33-0400 Body height 177.8 cm DO Adonis Ball Work Phone: [facility] 03-14-2024 08:33-0400 Body mass index (BMI) [Ratio] 35.7 kg/m2 DO Adonis Ball Work Phone: [facility] 03-14-2024 08:33-0400 Body weight 113 kg DO Adonis Ball Work Phone: [facility] 03-14-2024 08:33-0400 Diastolic blood pressure 88 mm[Hg] DO Adonis Ball Work Phone: [facility] 03-14-2024 08:33-0400 Heart rate 68 /min DO Adonis Ball Work Phone: [facility] 03-14-2024 08:33-0400 Respiratory rate 12 /min DO Adonis Ball Work Phone: [facility] 03-14-2024 08:33-0400 Systolic blood pressure 152 mm[Hg] DO Adonis Ball Work Phone: [facility] 11-12-2023 09:28-0400 Blood Pressure Location Julian HOGAN [facility] 11-12-2023 09:28-0400 Diastolic blood pressure 87 mm[Hg] Julian HOGAN [facility] 11-12-2023 09:28-0400 Heart rate 62 /min Julian HOGAN [facility] 11-12-2023 09:28-0400 Respiratory rate 16 /min Julian HOGAN [facility] 11-12-2023 09:28-0400 Systolic blood pressure 136 mm[Hg] Julian HOGAN [facility] 07-27-2023 10:45-0500 Body height 177.8 cm Adonis Ball Other [facility] Other 07-27-2023 10:45-0500 Body mass index (BMI) [Ratio] 36.33 kg/m2 Adonis Ball Other [facility] Other 07-27-2023 10:45-0500 Body weight 114.85 kg Adonis Ball Other [facility] Other 07-27-2023 10:45-0500 Diastolic blood pressure 95 mm[Hg] Adonis Ball Other [facility] Other 07-27-2023 10:45-0500 Respiratory rate 16 /min Adonis Ball Other [facility] Other 07-27-2023 10:45-0500 Systolic blood pressure 153 mm[Hg] Adonis Ball Other [facility] Other 07-18-2023 10:15-0500 Body height 177.8 cm Adonis Ball Other [facility] Other 07-18-2023 10:15-0500 Body mass index (BMI) [Ratio] 36.3 kg/m2 Adonis Ball Other [facility] Other 07-18-2023 10:15-0500 Body weight 114.76 kg Adonis Ball Other [facility] Other 07-18-2023 10:15-0500 Diastolic blood pressure 99 mm[Hg] Adonis Ball Other [facility] Other 07-18-2023 10:15-0500 Respiratory rate 12 /min Adonis Ball Other [facility] Other 07-18-2023 10:15-0500 Systolic blood pressure 157 mm[Hg] Adonis Ball Other [facility] Other 07-11-2023 13:45-0500 Body height 177.8 cm Adonis Ball Other [facility] Other 07-11-2023 13:45-0500 Body mass index (BMI) [Ratio] 36.1 kg/m2 Adonis Ball Other [facility] Other 07-11-2023 13:45-0500 Body weight 114.13 kg Adonis Ball Other [facility] Other 07-11-2023 13:45-0500 Diastolic blood pressure 94 mm[Hg] Adonis Ball Other [facility] Other 07-11-2023 13:45-0500 Respiratory rate 12 /min Adonis Ball Other [facility] Other 07-11-2023 13:45-0500 Systolic blood pressure 142 mm[Hg] Adonis Ball Other [facility] Other 08-18-2022 09:43-0500 Blood Pressure Location Julian HOGAN [facility] 08-18-2022 09:43-0500 Diastolic blood pressure 83 mm[Hg] Julian HOGAN [facility] 08-18-2022 09:43-0500 Heart rate 75 /min Julian HOGAN [facility] 08-18-2022 09:43-0500 Respiratory rate 16 /min Julian HOGAN [facility] 08-18-2022 09:43-0500 Systolic blood pressure 135 mm[Hg] Julian HOGAN [facility] Encounters Encounter Date Encounter Type Care Provider Facility Start: 11-10-2024 ambulatory Julian HOGAN Facili ty:[facility] Start: 04-09-2024 Non-patient / Non-visit DO Adonis Stone Work Phone: [facility] Work Phone: Start: 04-09-2024 End: 04-09-2024 Admission to same day surgery center DO Adonis Stone Work Phone: [facility] Work Phone: Start: 04-09-2024 End: 04-09-2024 ambulatory DO Adonis Stone Work Phone: [facility] Work Phone: Start: 03-14-2024 End: 03-14-2024 Patient encounter procedure DO Adonis Stone Work Phone: [facility] Work Phone: Start: 11-12-2023 End: 11-13-2023 ambulatory Julian HOGAN Facility:[facility] Start: 11-12-2023 End: 11-12-2023 Patient encounter procedure Julian HOGAN [facility] Start: 07-31-2023 End: 07-31-2023 ambulatory Adonis Ritter Other [facility] Other Start: 07-31-2023 Telephone encounter Adonis Ritter [facility] Start: 07-27-2023 End: 07-27-2023 ambulatory Adonis Ritter Other [facility] Other Start: 07-27-2023 Office outpatient visit 15 minutes Adonis Ritter [facility] Start: 07-18-2023 End: 07-18-2023 ambulatory Adonis Ritter Other [facility] Other Start: 07-18-2023 Office outpatient visit 15 minutes Adonis Ritter [facility] Start: 07-18-2023 Telephone encounter Adonis Ritter [facility] Start: 07-13-2023 End: 07-13-2023 ambulatory Adonis Ritter Other [facility] Other Start: 07-13-2023 Telephone encounter Adonis Ritter [facility] Start: 07-11-2023 End: 07-11-2023 ambulatory Adonis Ritter Other [facility] Other Start: 07-11-2023 Office outpatient visit 15 minutes Adonis Ritter [facility] Start: 09-11-2022 End: 09-11-2022 ambulatory DO Adonis Ritter Work Phone: [facility] Work Phone: Start: 09-11-2022 End: 09-11-2022 Patient encounter procedure DO Adonis Ritter Work Phone: [facility] Work Phone: Start: 08-18-2022 End: 08-18-2022 Patient encounter procedure Julian HOGAN [facility] Start: 08-16-2022 End: 08-17-[address] JULIAN HOGAN Facility:[facility] Procedures Date Procedure Procedure Detail Performing Clinician Start: 04-09-2024 Screening colonoscopy D O Adonis Ritter Work Phone: Start: 09-11-2022 MR prostate wo/w con DO Adonis Ritter Work Phone: Start: 08-16-[address] ANTONIETA HOGAN Comment on above: Performed By: #### P SAD #### [facility] [address] [place], [place] [id number] Dr. Antione Alves Start: 07-16-2018 Transrectal biopsy o f prostate using ultrasound guidance Julian HOGAN Start: 08-14-2017 Transrectal biopsy o f prostate using ultrasound guidance Julian HOGAN Colonoscopy Julian HOGAN Tonsillectomy Julian HOGAN Plan of Treatment Date Care Activity Detail Author Start: 04-09-2024 [facility] Patient Education Hemorrhoids (D C) Diverticulosis (DC) Colon Polypectomy (DC) Know your Meds [facility] Work Phone: Immunizations Immunization Date Immunization Notes Care Provider Niurka lund 05-15-2022 SARS-CoV-2 (COVID-19 ) [id number].[id number] Julian HOGAN [facility] 11-14-2021 SARS-CoV-2 mRNA (boaonsdssnw-erny-jigxb se) vaccine Julian HOGAN [facility] 05-17-2021 SARS-CoV-2 (COVID-19 ) mRNA BNT-162b2 vax Julian HOGAN [facility] Comment on above: Result Comment: 2023: TPV65 10-02-2020 SARS-CoV-2 (COVID-19 ) mRNA BNT-162b2 vax Julian HOGAN [facility] Comment on above: Result Comment: 2023: TPV65 09-11-2020 SARS-CoV-2 (COVID-19 ) mRNA BNT-162b2 vax Julian HOGAN [facility] Comment on above: Result Comment: 2023: TPV65 07-30-2020 SARS-CoV-2 (COVID-19 ) mRNA BNT-162b2 jocelin HOGAN [facility] Comment on above: Result Comment: Pt h as had 3 shots to date but does not know the dates 04-04-2017 diphtheria, tetanus toxoids and acellular pertussis vaccine, unspecified formulation Adonis Ritter Other [facility] Payers Date Payer Category Payer Self-pay 1958 Medicare [id number] 1950 Unknown [id number] 1950 Unknown [id number] 1950 Unknown [id number] Unknown [id number] [id number] Social History Date Type Detail Facility Start: 06-13-2019 End: 04-09-2024 Tobacco smoking status Never smoked tobacco (finding) [facility] Sex Assigned At Male [facility] Start: 1950 Sex Assigned At Male [facility] Tobacco smoking status Never [facility] Goals Date Patient Goal Desired Activity /State Functional Status Date Assessment Result Facility 11-12-2023 Functional Status N/A [facility] 08-18-2022 Functional Status N/A [facility] Clinical Notes 08-18-2022 to 04-09-2024 Note Date & Type Note Facility 04-09-2024 Procedure note [facility] 11-12-2023 Hospital Discharge instructions Patient Education 11/12/2023 [...] treatment? Where to find more information The [place] [employer]: www.cancer.org [employer] [employer]: www.auanet.org Contact a health care [...] provider. Document Revised: 01/09/2022 Document Reviewed: 01/09/2022 [employer] Patient Education 2022 KO-SU. Follow Up Care 08/18/2022 10:50:46 With:RONALDO THRASHER, Julian Hayden, URL Address: [facility] [address], [place] [address] [phone] When: Unknown Comments:1 yr w/ PSA [facility] 07-27-2023 Evaluation note Encounter Date Diagnosis Assessment [...] lingering but improved. Complete 10 day isolation [facility] Other [id number] Evaluation note* Encounter Date Diagnosis Assessment Notes [...] places for complete 10 days Initiate Paxlovid [facility] Other 12-20-2023 Evaluation note* Encounter Date Diagnosis Assessment Notes Treatment Notes Treatment Clinical Notes Jun, COVID-19 (ICD-10 - U07.1) [facility] Other 12-13-2023 Evaluation note* Encounter Date Diagnosis Assessment Notes Treatment Notes Treatment Clinical Notes Jun, Cellulitis of right lower extremity (ICD-10 - L03.115) Elevate and warm compresses. Begin antibiotics. _update in 2 days and recheck in week. [facility] Other 01-20-2023 Hospital Discharge instructions Patient Education [...] have oneof these risk factors: ?Being of -[place] descent. ?Having a family history of prostate [...] you: Are older than age 55. Are -[place]. Have a father, brother, or uncle who [...] 04/26/2018 Document Revised: 06/28/2018 Document Reviewed: 04/26/2018 [employer] Patient Education 2020 KO-SU. Follow Up Care 08/15/2021 12:39:57 With:Julian HOGAN MD, URL Address: [address] [place], [place] [id number]- When: Unknown [facility] evaluation + Plan note Future Appointments Appointment Date:08/17/2023 09:30:00 AM Scheduled Provider:Julian HOGAN MD Location:[facility] Appointment Type:URO Office Visit Diagnostic Tests Pending * PSA Total 06/29/23 [facility] evaluation + Plan note Future Appointments Appointment Date:11/10/2024 09:45:00 AM Scheduled Provider:Julian HOGAN MD Location:[facility] Appointment Type:URO Office Visit Diagnostic Tests Pending * PSA Total 11/12/23 [facility] evaluation noteNo assessment information available [facility] [employer] Work Phone: Evaluiczyi noteNo InformationNort [employer] Other Evaluation note* Diagnosis Onset Date Resolution Status Benign prostatic hyperplasia with lower urinary tract symptoms acute Elevated cholesterol acute Elevated PSA acute Hypertension acute IFG (impaired fasting glucose) acute Obesity acute [facility] Work Phone: History and physical note Author Bettye Andres [facility] April 09, 2024 8:38am Note Date/Time April 09, 2024 8:38am [facility] [address] [place] [address] Gastroenterology H&P Signed Patient: Radha House MR#: [id number] : 1950 Acct:[id number] Age/Sex: 73 / M Adm Date: 4 Loc: Room: Type: [facility] Attending Dr: Bettye Andres MD Copies to: Adonis Ritter,DO Bettye Andres MD~ Date of Service: 04/09/2024 HISTORY & PHYSICAL: Patient's history with special attention to the cardiovascular, pulmonary systems and the current problem was reviewed with the patient immediately prior to the procedure. Present medications and doses reviewed in the EMR. Allergies and pertinent laboratory tests were also reviewedat this time in the EMR. The physical examination, as below, was then performed. Indication, assessment and HPI: 73-year-old man here for screening colonoscopy Family history of GI malignancy? No PHYSICAL EXAMINATION General appearance: NAD Skin: No jaundice Head: NC/AT Eyes: Anicteric Neck: Supple Lungs: Normal respiratory effort, no use of accessory muscles Abdomen: nondistended Neuro: Ox3. REVIEW OF SYSTEMS Constitutional: Denies malaise, fevers Cardiovascular: Denies chest pain, palpitations Respiratory: Denies shortness of breath, wheezing Gastrointestinal: As per HPI Genitourinary: Denies dysuria, polyuria Musculoskeletal: Denies joint swelling, joint stiffness Neurological: Denies confusion, numbness, tingling Endocrine: Denies fatigue Written informed consent obtained from the patient. Risks (including but not limited to perforation, infection, bloating, bleeding, need for emergent surgeryand loss of life), benefits and alternatives explained and questions answered. The patient verbalized understanding. Based on history patient is an appropriate candidate for the procedure. Bettye Anrdes M.D. Documented By: Bettye Andres MD 04/09/24835 Signed By: <Electronically signed by Bettye Andres MD> 04/09/24 8908 [facility] Work Phone: History general Narrative - Reported* Type Description Date Medical History Hyperlipidemia, mixed Medical History Benign localized pro static hyperplasia without lower urinary tract symptoms (LUTS) Medical History Elevated PSA Medical History IFG (impaired fasting glucose) Medical History Essential hypertension Surgical History COLONOSCOPY 05/2018 Hospitalization History see surgical history [place] Other Hospital course Narrative No data available for this section [facility] progress note No data available for this section [facility] Summary Purpose Family History No Family History Records Found Relationship Condition Age at Onset Recorded Date/T nunu father Heart disease Unknown mother Diabetes mellitus Unknown Heart disease Unknown Malignant neoplasm Unknown Advance Directives No Advanced Directives Records Found Advance Directive Response Recorded Date/ Time Advance Directives No August 30, 2022 1:25pm Advance Directive Response Recorded Date/ Time Advance Directives No August 30, 2022 2:25pm Chief Complaint and Reason for Visit Chief Complaint r97.20 Chief Complaint 4 month follow up Screening Screening Reason for Visit Benign prostatic hyp erplasia with lower urinary tract symptoms Elevated cholesterol Elevated PSA Hypertension IFG (impaired fasting glucose) Obesity Additional Source Comments (unrecognized sect ion and content) No Status Records FoundNo Status Records FoundNo Status Records Found INFORMATION SOURCE (unrecogn ized section and content) DATE CREATED AUTHOR 08/17/2022 [facility] DATE CREATED AUTHOR AUTHOR'S ORGANIZ ATION 11/13/2023 [facility] DATE CREATED AUTHOR AUTHOR'S ORGANIZ ATION 04/18/2024 [facility] Patient Care team informatio n (unrecognized section and content) Team Status: Inactive Member Role Status Dates Julian Hogan MD Attending Provider Active Adonis Ritter DO Primary Care Provider Active Team Status: Active Member Role Status Dates Adonis Ritter DO Primary Care Provider Active Team Status: Inactive Member Role Status Dates Adonis Ritter DO Primary Care Provide r, Attending Provider Active Start: March 14, 2024 End: March 14, 2024 Team Status: Inactive Member Role Status Dates Adonis Ritter DO Primary Care Provider Active Start: April 09, 2024 End: April 09, 2024 Bettye Andres MD Attending Provider Active Start: April 09, 2024 End: April 09, 2024 Team Status: Active Member Role Status Dates Adonis Ritter DO Primary Care Provider Active Start: April 09, 2024 Bettye Andres MD Attending Provider, Other Provider Active Start: April 09, 2024 Goals (unrecognized section and content) Goals may [...] BE BASED ON THE PRIMARY CLINICAL RECORDS. [employer] [facility]. provides no warranty or guarantee of the accuracy or completeness of information in this document.
[2024-09-26 16:49] LABS: Prostate Specific Antigen Dx 11.04 ng/mL (<=4.00)
== END 2024-09-26 13:51 | disposition home or self-care (01) ==
LOC: LAB 13:51
PROVIDERS: PCP Internal Medicine; Visit Provider Urology
DX: R97.20 Elevated prostate specific antigen [PSA] (principal)
CPT/HCPCS: 36415; 84153

== ENCOUNTER 2024-11-11 08:24 | Outpatient (OUT) | payer MEDICARE, SELFPAY ==
--- OUTSIDE RECORDS SUMMARY | 2024-11-11 08:30 | XMS_ITS | CCD ---
Author Organization [facility] Care Team Providers Care Field Crop Technical Officer Name Role Phone DR JULIAN HOGAN Admitting Unavailable RONALDO, DR VIVAS Attending Unavailable STONE, DR MILNER Primary Care Unavailable RONALDO, DR VIVAS Consulting Unavailable ADONIS RITTER Primary Care Physician [phone] MD Julian Hogan Attending Provider DO Adonis Ritter Primary Care Provider [phone] Adonis Ritter Unavailable DO Adonis Ritter Primary Care Provider [phone] MD Bettye Andres Attending Provider [phone] Adonis Ritter Primary Care Unavailable Dmitry, Imaamnda Attending Unavailable Dmitry, Bettye Admitting Unavailable Julian HOGAN Attending Unavailable Julian HOGAN Attending Unavailable Julian HOGAN Attending Unavailable Allergies Allergy Classification Reported Allergen(s) Allergy Type Date of Onset Reaction(s) Facility (1 source) No Known Medication Allergies; Translations: [No Known Medication Allergies] Propensity to adverse reactions (disorder) [facility] Repository Medications Current Medications Medication Drug Class(es) Dates Sig (Normalized) Sig (Original) doxycycline hyclate 100 mg oral capsule (6 sources) Tetracycline-clas s Drug Start: 07-11-2023 take 1 capsule by mouth every twelve hours Doxycycline Hyclate 100 MG 1 capsule Orally Twice a day for 7 days Jun, Active [place] (No Known Home Meds) (1 source) Start: 03-14-2024 [place] (No Known Home Meds) Active March 14, [...] Test Name Value Interpretation Reference Range Facility Urology Office/Clinic Noteon 11-10-2024 Urology Office/Clinic Note Urology Office/Clinic Note Chief Complaint 1 year follow up PSA HPI Staff 1 year f/u with PSA DX: elevated PSA, BPH with urinary obstruction and proteinuria PSA: 08/16/23- 10.0 & 24.8% 09/26/24 - 11.04 Denies hematuria, denies dysuria. Denies abdominal pain/flank pain. Urge during the night 2 x a night. Has a weak stream sometimes. History of Present Illness Tests reviewed: reviewed [...] & Measurements HR: 62(Peripheral) RR: 16 BP: 138/82 HT: 182 cm HT: 72 in WT: 255.736 lb WT: 116 kg BMI: 35.02 General Appearance: alert, no distress, well nourished, well developed male. Assessment/Plan 1. Elevated PSA (R97.20: Elevated prostate specific antigen [PSA]) PSA 04/2020 - 7 08/10/21 - 7.8 08/16/22 - 12.58 08/16/23 - 10 & 24.8% (was on abx x2wks prior to this) 09/26/24 - 11.04 Negative TRUS/bx 07/2017 & 06/2018. Negative prostate MRI 06/2019. Prostate MRI 09/11/22 [facility] [place] Prostate volume 146 mL. No evidence of prostate malignancy. [place] 08/18/22: 35g, benign PSA has increased from prior. Discussed high level can be attributed to large prostate volume and chronic asymptomatic subclinical prostatitis. Fluctuation is likely related to subclinical prostatitis. Will cont to monitor. -F/u in 1 yr w/ PSA 2. BPH with urinary obstruction (N40.1: Benign prostatic hyperplasia with lower urinary tract symptoms) UA today negative for blood and infection. Not taking any BPH meds. Shares has occasional burning with urination if he delays going. Only slightly bothered by frequency. Nocturia 1-2x, depending on fluid intake. Voiding q3-4hrs during the day. Advised pt this is wnl as it is preferable to void q2-3hrs to prevent infection. Discussed starting oral medication. Pt does not feel sxs are bothersome enough. -Cont sx monitoring. Consider medical management if sxs become more bothersome. Follow-up With When Contact Information RONALDO THRASHER, Julian Hayden, URL [facility] [address] [place] [address]- [phone] Additional Instructions: 1 yr w/ PSA Patient Education Benign Prostatic Hyperplasia I, Leigh Ann Weiss, personally scribed for Dr. Hogan on 11/10/2024 10:18:09. . Documentation recorded by the scribe, Leigh Ann Weiss, accurately reflects the services(s) I performed and decisions made by me. Authenticated by Dr. Hogan on 11/10/2024 10:21:31. Problem List/Past Medical History Ongoing BPH with urinary obstruction Elevated PSA Hyperlipidemia Hypertension Historical No qualifying data Procedure/Surgical History Transrectal biopsy of prostate using ultrasound (US) guidance (07/16/2018), Transrectal biopsy of prostate using ultrasound guidance (08/14/2017), Colonoscopy, Tonsillectomy. Medications No active medications Allergies No Known Medication Allergies Social History Alcohol Never., 11/10/2024 Substance Abuse Never., 11/10/2024 Tobacco - Denies Tobacco Use, 08/04/2019 Never (less than 100 in lifetime) Tobacco Use:. Never Smokeless Tobacco Use:., 11/10/2024 Family History Cancer of liver: Mother. Diabetes mellitus type 2: Mother. Hypertension: Mother. Immunizations Vaccine Date Status Comments SARS-CoV-2 (COVID-19) [id number].[id number] 05/15/2022 Recorded SARSCoV2 mRNA(ncwopfwyk-nuia-g ucros) vac 11/14/2021 Recorded SARS-CoV-2 (COVID-19) mRNA BNT-162b2 vax 05/17/2021 Recorded 2023-11-12: TPV65 SARS-CoV-2 (COVID-19) mRNA BNT-162b2 vax 10/02/2020 Recorded 2023-11-12: TPV65 SARS-CoV-2 (COVID-19) mRNA BNT-162b2 vax 09/11/2020 Recorded 2023-11-12: TPV65 SARS-CoV-2 (COVID-19) mRNA BNT-162b2 vax 2020 Recorded Pt has had 3 shots to date but does not know the dates Lab Results Ambulatory Point of Care Results Bilirubin Urine Dipstick: Negative (11/10/24 09:47:00) Blood Urine Dipstick: Negative (11/10/24 09:47:00) Glucose Urine Dipstick: Negative (11/10/24 09:47:00) Ketones Urine Dipstick: Negative (11/10/24 09:47:00) Leukocytes Urine Dipstick: Negative (11/10/24 09:47:00) Nitrite Urine Dipstick: Negative (11/10/24 09:47:00) Protein Urine Dipstick: Negative (11/10/24 09:47:00) Specific [place] Urine Dipstick: 1.020 (11/10/24 09:47:00) Ur (more content not included)... Normal [facility] Comment on above: Result Comment: Elec tronically Signed By: RONALDO THRASHER, Julian Hayden\.br\Date and Time Signed: 11/10/24 10:21 EDT\.br\Electronically Co-Signed By: Leigh Ann Weiss\.br\Date and Time Co-Signed: 11/10/24 10:19 EDT [place] 04-09-2024 L Specimen: [id number] Received: 04/09/24 Status: BETINA Varela Num: [id number] Spec Type: Surgical Subm Dr: Bettye Andres MD Tissues: A Colon Biopsy (DESCENDING COLON POLYPECTOMY) B Colon Biopsy (RECTAL POLYP) Procedures: HE/4, Gross/Micro L4/2 Age/ Patient Sex Location Account Attending Physician Radha House 73/M [id number] Bettye Andres MD SPEC NUM: [id number] RECD: 04/09/24 STATUS: YAACarlos VARELA NUM: [id number] MICHAEL: 04/09/[address]: Bettye Andres MD ENTERED: 04/09/[address] [facility] DR: SPEC TYPE: Surgical DEPT: S ENTERED BY: [id number] RECV BY: [id number] ORDERED: HE/4, Gross/Micro L4/2 ORDERED: HE/4, Gross/Micro [...] entirely submitted in cassette B1. -------- Specimen: [id number] Received: 04/09/24 Status: BETINA Varela Num: [id number] Spec Type: Surgical Subm Dr: Bettye Andres MD Tissues: A Colon Biopsy (DESCENDING COLON POLYPECTOMY) B Colon Biopsy (RECTAL POLYP) Procedures: HE/Esvin, Gross/Micro L4/2 -------- Patient: Radha House [id number] (Continued) -------- Specimen: [id number] Received: 04/09/24 (Continued) Signed (signature on file) Janett Partida MD 04/16/24 1504 -------- Specimen: [id number] Received: 04/09/24 Status: BETINA Varela Num: [id number] Spec Type: Surgical Subm Dr: Bettye Andres MD Tissues: A Colon Biopsy (DESCENDING COLON POLYPECTOMY) B Colon Biopsy (RECTAL POLYP) Procedures: HE/Esvin, Gross/Micro L4/2 -------- Patient: Radha House [id number] (Continued) -------- Specimen: [id number] Received: 04/09/24 (Continued) CPT Codes 80789u5 -------- -------- Specimen: [id number] Received: 04/09/24 Status: BETINA Varela Num: [id number] Spec Type: Surgical Subm Dr: Bettye Andres MD Tissues: A Colon Biopsy (DESCENDING COLON POLYPECTOMY) B Colon Biopsy (RECTAL POLYP) Procedures: HE/4, Gross/Micro L4/2 -------- Patient: Radha House [id number] (Continued) -------- Signed (signature on file) Janett Partida MD 04/16/24 1504 Normal [facility] Ambulatory Visit Summaryon 0 [...] With: Julian HOGAN MD Where: [facility] Ambulatory Visit Summary RADHA HOUSE :1950 [...] w/ PSA Where: [facility] [address], [place] [address]- [phone] Allergies No Known Medication Allergies Problems Ongoing [...] of pros (more content not included)... Normal [place] [facility] Patient Educationon 11-12-19 Patient Education Oncology Prostate [...] Where to find more information ? The [place] [employer]: www.cancer.org ? [place] [employer]: www.auanet.org Contact a health care [...] flu (more content not included)... Normal [place] [facility] Urology Office/Clinic Noteon 11-12-2023 Urology Office/Clinic Note Chief Complaint 15 month PSA f/u HPI Staff 15 month f/u w/ PSA. Previous dx: BPH wiht obstruction, elevated PSA. S/p TRUS/bx 08/14/17 and 07/16/18. Prostate MRI done 09[place]11/22 at [facility] Results were given over the phone 09/12/22. [...] Negative prostate MRI 06/2019. Prostate MRI 09/11/22 [facility] - Prostate volume 146 mL. No evidence [...] URL [facility] [address], [place] [address]- [phone] Additional Instructions: 1 yr w/ PSA Patient Education Prostate Cancer Screening Leigh Ann Perdomo, personally scribed for Dr. Hogan on 11/12/2023 [...] Immunizations Vaccine Date Status Comments SARS-CoV-2 (COVID-19) [id number].[id number] 05/15/2022 Recorded SARSCoV2 mRNA(kvfvljrld-oslt-r ucros) vac 11/14/2021 Recorded SARS-CoV-2 (COVID-19) mRNA BNT-162b2 vax 05/17/2021 Recorded 2023-11-12: TPV65 SARS-CoV-2 (COVID-19) mRNA BNT-162b2 vax 10/02/2020 Recorded 2023-11-12: TPV65 SARS-CoV-2 (COVID-19) mRNA BNT-162b2 vax 09/11/2020 Recorded 2023-11-12: TPV65 SARS-CoV-2 (COVID-19) mRNA BNT-162b2 vax 2020 Recorded Pt has had 3 shots to date but does not know (more content not included)... Normal [facility] Comment on above: Result Comment: Elec tronically Signed By: Julian HOGAN MD\.br\Date and Time Signed: 11/12/23 10:27 EDT\.br\Electronically Co-Signed By: Leigh Ann Weiss.br\Date and Time Co-Signed: 11/12/23 10:24 EDT Creatinine (Bld) [Mass/Vol]O rdered By: Julian Hogan on 09-11-2022 Creatinine [Mass/Vol] 0.9 mg/dL 0.6-1.3 [facility] Comment on above: ER/ESD physician is notified/shown all ISTAT results.Critical values may be confirmed by laboratory testing ifdeemed necessary by ER attending doctor. No Panel InformationOrdered By: Julian Hogan on 09-11-2022 POC Estimated GFR > 60 [facility] Comment on above: GFR estimated refere nce range: According to KDOQI guidelines, <60 ml/min/1.73m2 is sufficient to diagnose a patient with chronic kidney disease. POC Estimated GFR Non- Amer > 60 [facility] Vital Signs Date Time Vital Sign Value Performing Clinician Facility 04-09-2024 09:08-0400 Diastolic blood pressure 88 mm[Hg] DO Adonis Ball Work Phone: [facility] 04-09-2024 09:08-0400 Heart rate 59 /min DO Adonis Ball Work Phone: [facility] 04-09-2024 09:08-0400 Respiratory rate 16 /min DO Adonis Ball Work Phone: [facility] 04-09-2024 09:08-0400 SaO2% (BldA) [Mass fraction] 96 % DO Adonis Ball Work Phone: [facility] 04-09-2024 09:08-0400 Systolic blood pressure 137 mm[Hg] DO Adonis Ball Work Phone: [facility] 04-09-2024 06:57-0400 Body height 180.34 cm DO Adonis Ball Work Phone: [facility] 04-09-2024 06:57-0400 Body weight 113.39 kg DO Adonis Ball Work Phone: [facility] 03-14-2024 08:33-0400 Body height 177.8 cm DO Adonis Ball Work Phone: [facility] 03-14-2024 08:33-0400 Body mass index (BMI) [Ratio] 35.7 kg/m2 DO Adonis Ball Work Phone: [facility] 03-14-2024 08:33-0400 Body weight 113 kg DO Adonis Ball Work Phone: [facility] 03-14-2024 08:33-0400 Diastolic blood pressure 88 mm[Hg] DO Adonis Ball Work Phone: [facility] 03-14-2024 08:33-0400 Heart rate 68 /min DO Adonis Ball Work Phone: [facility] 03-14-2024 08:33-0400 Respiratory rate 12 /min DO Adonis Ball Work Phone: [facility] 03-14-2024 08:33-0400 Systolic blood pressure 152 mm[Hg] DO Adonis Ball Work Phone: [facility] 11-12-2023 09:28-0400 Blood Pressure Location Julian HOGAN [facility] 11-12-2023 09:28-0400 Diastolic blood pressure 87 mm[Hg] Julian HOGAN [facility] 11-12-2023 09:28-0400 Heart rate 62 /min Julian HOGAN [facility] 11-12-2023 09:28-0400 Respiratory rate 16 /min Julian HOGAN [facility] 11-12-2023 09:28-0400 Systolic blood pressure 136 mm[Hg] Julian HOGAN [facility] 07-27-2023 10:45-0500 Body height 177.8 cm Adonis Ball Other [facility] [employer] Other 07-27-2023 10:45-0500 Body mass index (BMI) [Ratio] 36.33 kg/m2 Adonis Ball Other [facility] [employer] Other 07-27-2023 10:45-0500 Body weight 114.85 kg Adonis Ball Other [facility] Other 07-27-2023 10:45-0500 Diastolic blood pressure 95 mm[Hg] Adonis Ball Other [facility] Other 07-27-2023 10:45-0500 Respiratory rate 16 /min Adonis Ball Other [facility] Other 07-27-2023 10:45-0500 Systolic blood pressure 153 mm[Hg] Adonis Ball Other [facility] Other 07-18-2023 10:15-0500 Body height 177.8 cm Adonis Ball Other [facility] Other 07-18-2023 10:15-0500 Body mass index (BMI) [Ratio] 36.3 kg/m2 Adonis Ball Other [employer] Other 07-18-2023 10:15-0500 Body weight 114.76 kg Adonis Ball Other [facility] Other 07-18-2023 10:15-0500 Diastolic blood pressure 99 mm[Hg] Adonis Ball Other [employer] Other 07-18-2023 10:15-0500 Respiratory rate 12 /min Adonis Ball Other [employer] Other 07-18-2023 10:15-0500 Systolic blood pressure 157 mm[Hg] Adonis Ball Other [employer] Other 07-11-2023 13:45-0500 Body height 177.8 cm Adonis Ball Other [employer] Other 07-11-2023 13:45-0500 Body mass index (BMI) [Ratio] 36.1 kg/m2 Adonis Ball Other [employer] Other 07-11-2023 13:45-0500 Body weight 114.13 kg Adonis Ball Other [employer] Other 07-11-2023 13:45-0500 Diastolic blood pressure 94 mm[Hg] Adonis Ball Other [employer] Other 07-11-2023 13:45-0500 Respiratory rate 12 /min Adonis Ball Other [employer] Other 07-11-2023 13:45-0500 Systolic blood pressure 142 mm[Hg] Adonis Ball Other [employer] Other 08-18-2022 09:43-0500 Blood Pressure Location Julian HOGAN [facility] 08-18-2022 09:43-0500 Diastolic blood pressure 83 mm[Hg] Julian HOGAN [facility] 08-18-2022 09:43-0500 Heart rate 75 /min Julian HOGAN [facility] 08-18-2022 09:43-0500 Respiratory rate 16 /min Julian HOGAN [facility] 08-18-2022 09:43-0500 Systolic blood pressure 135 mm[Hg] Julian HOGAN [facility] Encounters Encounter Date Encounter Type Care Provider Facility Start: 11-16-2025 ambulatory Julian Saucedoi ty:[facility] [place] Start: 11-10-2024 ambulatory Julian Saucedoi ty:[facility] Start: 04-09-2024 Non-patient / Non-visit DO Adonis Ritter Work Phone: [facility] Work Phone: Start: 04-09-2024 End: 04-09-2024 Admission to same day surgery center DO Adonis Ritter Work Phone: [facility] Work Phone: Start: 04-09-2024 End: 04-09-2024 ambulatory DO Adonis Ritter Work Phone: [facility] Work Phone: Start: 03-14-2024 End: 03-14-2024 Patient encounter procedure DO Adonis Ritter Work Phone: [facility] Work Phone: Start: 11-12-2023 End: 11-12-2023 ambulatory Julian HOGAN Facility:[facility] Start: 11-12-2023 End: 11-12-2023 Patient encounter procedure Julian HOGAN [facility] Start: 07-31-2023 End: 07-31-2023 ambulatory Adonis Ritter Other [facility] Other Start: 07-31-2023 Telephone encounter Adonis Ritter [facility] Start: 07-27-2023 End: 07-27-2023 ambulatory Adonis Ritter Other [employer] Other Start: 07-27-2023 Office outpatient visit 15 minutes Adonis Ball [facility] Start: 07-18-2023 End: 07-18-2023 ambulatory Adonis Ritter Other [employer] Other Start: 07-18-2023 Office outpatient visit 15 minutes Adonis Ball [facility] Start: 07-18-2023 Telephone encounter Adonis Ball [facility] Start: 07-13-2023 End: 07-13-2023 ambulatory Adonis Ritter Other [facility] Other Start: 07-13-2023 Telephone encounter Adonis Ritter [facility] Start: 07-11-2023 End: 07-11-2023 ambulatory Adonis Ritter Other [employer] Other Start: 07-11-2023 Office outpatient visit 15 minutes Adonis Ritter [facility] Start: 09-11-2022 End: 09-11-2022 ambulatory DO Adonis Ritter Work Phone: [facility] Work Phone: Start: 09-11-2022 End: 09-11-2022 Patient encounter procedure DO Adonis Ritter Work Phone: [facility] [place] Work Phone: Start: 08-18-2022 End: 08-18-2022 Patient encounter procedure Julian HGOAN [facility] Start: 08-16-2022 End: 08-17-[address] JULIAN HOGAN Facility: Procedures Date Procedure Procedure Detail Performing Clinician Start: 04-09-2024 Screening colonoscopy D O Adonis Ritter Work Phone: Start: 09-11-2022 MR prostate wo/w con DO Adonis Ritter Work Phone: Start: 08-16-[address] ANTONIETA HOGAN Comment on above: Performed By: #### P SAD #### [facility] [address] [place] [address] Dr. Antione Alves Start: 07-16-2018 Transrectal biopsy o f prostate using ultrasound guidance Julian HOGAN Start: 08-14-2017 Transrectal biopsy o f prostate using ultrasound guidance Julian HOGAN Colonoscopy Julian HOGAN Tonsillectomy Julian HOGAN Plan of Treatment Date Care Activity Detail Author Start: 04-09-2024 [facility] Patient Education Hemorrhoids (D C) Diverticulosis (DC) Colon Polypectomy (DC) Know your Meds [facility] Work Phone: Immunizations Immunization Date Immunization Notes Care Provider Niurka lund 05-15-2022 SARS-CoV-2 (COVID-19 ) [id number].[id number] Julian HOGAN [facility] 11-14-2021 SARS-CoV-2 mRNA (celgpxceqzh-hqoq-ovwih se) vaccine Julian HOGAN [facility] 05-17-2021 SARS-CoV-2 (COVID-19 ) mRNA BNT-162b2 vax Julian HOGNA [facility] Comment on above: Result Comment: 2023: TPV65 10-02-2020 SARS-CoV-2 (COVID-19 ) mRNA BNT-162b2 annettex Julian HOGAN [facility] Comment on above: Result Comment: 2023: TPV65 09-11-2020 SARS-CoV-2 (COVID-19 ) mRNA BNT-162b2 annettex Julian HOGAN [facility] Comment on above: Result Comment: 2023: TPV65 07-30-2020 SARS-CoV-2 (COVID-19 ) mRNA BNT-162b2 annettex Julian HOGAN [facility] Comment on above: Result Comment: Pt h as had 3 shots to date but does not know the dates 04-04-2017 diphtheria, tetanus toxoids and acellular pertussis vaccine, unspecified formulation Adonis Ritter Other [facility] Payers Date Payer Category Payer Self-pay 2016 Medicare [id number] 1958 Medicare [id number] 1950 Unknown [id number] 1950 Unknown [id number] [id number] [id number] 1950 Unknown [id number] 2.16.8 [id number] 1950 Unknown [id number] 2.16.8 [id number] Unknown [id number] 2.16.8 [id number] Social History Date Type Detail Facility Start: 06-13-2019 End: 04-09-2024 Tobacco smoking status Never smoked tobacco (finding) [facility] Sex Assigned At Male [facility] Start: 1950 Sex Assigned At Male [facility] Tobacco smoking status Never [facility] Goals Date Patient Goal Desired Activity /State Functional Status Date Assessment Result Facility 11-12-2023 Functional Status N/A [facility] 08-18-2022 Functional Status N/A [facility] Clinical Notes 08-18-2022 to 11-10-2024 Note Date & Type Note Facility 11-10-2024 Note Patient Education Urology Benign Prostatic Hyperplasia Benign prostatic hyperplasia (BPH) is an enlarged prostate gland that is caused by the normal aging process. The prostate may get bigger as a man gets older. The condition is not caused by cancer. The prostate is a walnut-sized gland that is involved in the production of semen. It is located in front of the rectum and below the bladder. The bladder stores urine. The urethra carries stored urine out of the body. An enlarged prostate can press on the urethra. This can make it harder to pass urine. The buildup of urine in the bladder can cause infection. Back pressure and infection may progress to bladder damage and kidney (renal) failure. What are the causes? This condition is part of the normal aging process. However, not all men develop problems from this condition. If the prostate enlarges away from the urethra, urine flow will not be blocked. If it enlarges toward the urethra and compresses it, there will be problems passing urine. What increases the risk? This condition is more likely to develop in men older than 50 years. What are the signs or symptoms? Symptoms of this condition include: ??? Getting up often during the night to urinate. ??? Needing to urinate frequently during the day. ??? Difficulty starting urine flow. ??? Decrease in size and strength of your urine stream. ??? Leaking (dribbling) after urinating. ??? Inability to pass urine. This needs immediate treatment. ??? Inability to completely empty your bladder. ??? Pain when you pass urine. This is more common if there is also an infection. ??? Urinary tract infection (UTI). How is this diagnosed? This condition is diagnosed based on your medical history, a physical exam, and your symptoms. Tests will also be done, such as: ??? A post-void bladder scan. This measures any amount of urine that may remain in your bladder after you finish urinating. ??? A digital rectal exam. In a rectal exam, your health care provider checks your prostate by putting a lubricated, gloved finger into your rectum to feel the back of your prostate gland. This exam detects the size of your gland and any abnormal lumps or growths. ??? An exam of your urine (urinalysis). ??? A prostate specific antigen (PSA) screening. This is a blood test used to screen for prostate cancer. ??? An ultrasound. This test uses sound waves to electronically produce a picture of your prostate gland. Your health care provider may refer you to a specialist in kidney and prostate diseases (urologist). How is this treated? Once symptoms begin, your health care provider will monitor your condition (active surveillance or watchful waiting). Treatment for this condition will depend on the severity of your condition. Treatment may include: ??? Observation and yearly exams. This may be the only treatment needed if your condition and symptoms are mild. ??? Medicines to relieve your symptoms, including: ? Medicines to shrink the prostate. ? Medicines to relax the muscle of the prostate. ??? Surgery in severe cases. Surgery may include: ? Prostatectomy. In this procedure, the prostate tissue is removed completely through an open incision or with a laparoscope or robotics. ? Transurethral resection of the prostate (TURP). In this procedure, a tool is inserted through the opening at the tip of the penis (urethra). It is used to cut away tissue of the inner core of the prostate. The pieces are removed through the same opening of the penis. This removes the blockage. ? Transurethral incision (TUIP). In this procedure, small cuts are made in the prostate. This lessens the prostate's pressure on the urethra. ? Transurethral microwave thermotherapy (TUMT). This procedure uses microwaves to create heat. The heat destroys and removes a small amount of prostate tissue. ? Transurethral needle ablation (TUNA). This procedure uses radio frequencies to destroy and remove a small amount of prostate tissue. ? Interstitial laser coagulation (ILC). This procedure uses a laser to destroy and remove a small amount of prostate tissue. ? Transurethral electrovaporization (TUVP). This procedure uses electrodes to destroy and remove a small amount of prostate tissue. ? Prostatic urethral lift. This procedure inserts an implant to push the lobes of the prostate away from the urethra. Follow these instructions at home: ??? Take [id number] and prescription medicines only as told by your health care provider. ??? Monitor your symptoms for any changes. Contact your health care provider with any changes. ??? Avoid drinking large amounts of liquid before going to bed or out in public. ??? Avoid or reduce how much caffeine or alcohol you drink. ??? Give yourself time when you urinate. ??? Keep all follow-up visits. This is important. Contact a health care provider if: ??? You have unexplained back pain. ??? Your symptoms do not get (more content not included)... [facility] 04-09-2024 Procedure note [facility] 11-12-2023 Hospital Discharge instructions Patient Education 11/12/2023 [...] treatment? Where to find more information [employer]: www.cancer.org [place] [employer]: www.auanet.org Contact a health care [...] provider. Document Revised: 01/09/2022 Document Reviewed: 01/09/2022 [employer] Patient Education 2022 [employer]. Follow Up Care 08/18/2022 10:50:46 With:RONALDO THRASHER, Julian Hayden, URL Address: [facility] [address], [place] [address]- [phone] When: Unknown Comments:2 yr w/ PSA [facility] 07-27-2023 Evaluation note Encounter Date Diagnosis Assessment [...] lingering but improved. Complete 10 day isolation [facility] Other [id number] Evaluation note* Encounter Date Diagnosis Assessment Notes [...] places for complete 10 days Initiate Paxlovid [facility] Other 12-20-2023 Evaluation note* Encounter Date Diagnosis Assessment Notes Treatment Notes Treatment Clinical Notes Jun, COVID-19 (ICD-10 - U07.1) [facility] Other 12-13-2023 Evaluation note* Encounter Date Diagnosis Assessment Notes Treatment Notes Treatment Clinical Notes Jun, Cellulitis of right lower extremity (ICD-10 - L03.115) Elevate and warm compresses. Begin antibiotics. _update in 2 days and recheck in week. [facility] Other 01-20-2023 Hospital Discharge instructions Patient Education [...] have oneof these risk factors: ?Being of -[place] descent. ?Having a family history of prostate [...] you: Are older than age 55. Are -[place]ic. Have a father, brother, or uncle who [...] 04/26/2018 Document Revised: 06/28/2018 Document Reviewed: 04/26/2018 [employer] Patient Education 2020 [employer]. Follow Up Care 08/15/2021 12:39:57 With:Julian HOGAN MD, URL Address: [address] [place], [place] [id number]- When: Unknown [facility] evaluation + Plan note Future Appointments Appointment Date:08/17/2023 09:30:00 AM Scheduled Provider:Julian HOGAN MD Location:[facility] Appointment Type:URO Office Visit Diagnostic Tests Pending * PSA Total 06/29/23 [facility] evaluation + Plan note Future Appointments Appointment Date:11/10/2024 09:45:00 AM Scheduled Provider:Julian HOGAN MD Location:[facility] Appointment Type:URO Office Visit Diagnostic Tests Pending * PSA Total 11/12/23 [facility] evaluation noteNo assessment information available [facility] Work Phone: Evalubdlvl noteNo InformationNort Ensequence Other Evaluation note* Diagnosis Onset Date Resolution Status Benign prostatic hyperplasia with lower urinary tract symptoms acute Elevated cholesterol acute Elevated PSA acute Hypertension acute IFG (impaired fasting glucose) acute Obesity acute [facility] Work Phone: History and physical note Author Bettye Andres [facility] April 09, 2024 8:38am Note Date/Time April 09, 2024 8:38am [facility] [address] [place] [address] Gastroenterology H&P Signed Patient: Radha House MR#: [id number] : 1950 Acct:[id number] Age/Sex: 73 / M Adm Date: 4 Loc: Room: Type: [facility] Attending Dr: Bettye Andres MD Copies to: [...] an appropriate candidate for the procedure. Bettye Andres M.D. Documented By: Bettye Andres MD 04/09/24 0836 Signed By: <Electronically signed by Bettye Andres MD> 04/09/24 0338 [facility] Work Phone: History general Narrative - Reported* Type Description Date Medical History Hyperlipidemia, mixed Medical History Benign localized pro static hyperplasia without lower urinary tract symptoms (LUTS) Medical History Elevated PSA Medical History IFG (impaired fasting glucose) Medical History Essential hypertension Surgical History COLONOSCOPY 05/2018 Hospitalization History see surgical history [facility] Other Hospital course Narrative No data available for this section [facility] progress note No data available for this section [facility] Summary Purpose Family History No Family [...] DATE CREATED AUTHOR 08/17/2022 [facility] pital DATE CREATED AUTHOR AUTHOR'S ORGANIZ ATION 04/18/2024 [facility] DATE CREATED AUTHOR AUTHOR'S ORGANIZ ATION 11/10/2024 [facility] Patient Care team informatio n (unrecognized section [...] BE BASED ON THE PRIMARY CLINICAL RECORDS. [employer] provides no warranty or guarantee of the accuracy or completeness of information in this document.
[2024-11-11 08:52] LABS: Basophils Absolute Auto 0.1 10^3/uL (0.0-0.1); Basophils Percent Auto 0.9 % (0.2-2.0); Eosinophils Absolute Auto 0.3 10^3/uL (0.0-0.7); Eosinophils Percent Auto 4.8 % (0.9-7.0); Hematocrit 43.7 % (42.0-54.0); Hemoglobin 14.8 g/dL (14.0-18.0); Immature Granulocytes Abs Auto 0.01 10^3/uL (0.00-0.03); Immature Granulocytes Pct Auto 0.1 % (0.0-0.5); Lymphocytes Absolute Auto 1.4 10^3/uL (1.2-3.8); Lymphocytes Percent Auto 20.5 % (20.5-60.0); Mean Corpuscular HGB Conc 33.9 g/dL (29.9-35.2); Mean Corpuscular Volume 94.6 fL (80.0-94.0); Mean Platelet Volume 9.3 fL (9.5-13.5); Monocytes Absolute Auto 0.6 10^3/uL (0.3-0.8); Monocytes Percent Auto 9.3 % (1.7-12.0); Neutrophils Absolute Auto 4.3 10^3/uL (1.4-6.5); Neutrophils Percent Auto 64.4 % (43.0-75.0); Platelet Count 199 10^3/uL (150-450); Red Blood Count 4.62 10^6/uL (4.70-6.10); Red Cell Distribution Width 12.6 % (11.0-15.0); White Blood Count 6.7 10^3/uL (4.0-11.0)
[2024-11-11 09:40] LABS: Alanine Aminotransferase 30 U/L (16-63); Albumin Globulin Ratio 1.1; Albumin Level 3.4 g/dL (3.4-5.0); Alkaline Phosphatase 79 U/L (46-116); Anion Gap 14.2; Aspartate Amino Transferase 18 U/L (15-37); BUN Creatinine Ratio 14.2; Bilirubin Total 0.9 mg/dL (0.2-1.0); Calcium 8.9 mg/dL (8.5-10.1); Carbon Dioxide 27.9 mmol/L (21.0-32.0); Chloride 106 mmol/L (98-107); Chol HDL Ratio 3.8; Cholesterol 163 mg/dL (<=200); Estimated GFR (African America >60 (>=60 mL/min/1.73m^2); Estimated GFR (Non-African Ame >60 (>=60 mL/min/1.73m^2); Globulin 3.1 g/dL; Glucose 126 mg/dL (74-106); HDL Cholesterol 43 mg/dL (40-60); LDL Cholesterol Calculated 108.4 mg/dL; Potassium 4.1 mmol/L (3.5-5.1); Sodium 144 mmol/L (136-145); Total Protein 6.5 g/dL (6.4-8.2); Triglycerides 58 mg/dL (<=150); VLDL CHOLESTEROL 11.6 mg/dL
== END 2024-11-11 08:25 | disposition home or self-care (01) ==
LOC: LAB 08:26
PROVIDERS: PCP Internal Medicine; Visit Provider Internal Medicine
DX: E78.00 Pure hypercholesterolemia, unspecified (principal); I10 Essential (primary) hypertension; R73.01 Impaired fasting glucose
CPT/HCPCS: 36415; 80053; 80061; 85025